=== PATIENT | female | born 1960 | race Caucasian/White ===

== ENCOUNTER → 2018-11-19 10:28 | Outpatient (CLI) | payer MEDICARE, MEDICAID | END | disposition home or self-care (01) | LOC: D.RT 10:28 | DX: D50.9 Iron deficiency anemia, unspecified (principal) ==

== ENCOUNTER 2018-12-01 08:00 | Outpatient (CLI) | payer MEDICARE, MEDICAID ==
[2018-12-01] MEDS ORDERED: VENTOLIN HFA18 GM INH (12:55)
[2018-12-01] MEDS ORDERED: FLOVENT HFA 11012 GM INH (12:56)
[2018-12-01] MEDS ORDERED: IPRAT-ALBUT 0.5-3 ML UPD (12:57)
[2018-12-01] MEDS ORDERED: CARAFATE1 G PO (12:57)
[2018-12-01] MEDS ORDERED: LINZESS145 MCG PO (12:57)
[2018-12-01] MEDS ORDERED: MACRODANTIN100 MG PO (12:58)
[2018-12-01] MEDS ORDERED: HYDROCHLOROTHIA25 MG PO (12:58)
[2018-12-01] MEDS ORDERED: TRAZODONE HCL150 MG PO (12:59)
[2018-12-01] MEDS ORDERED: NITROSTAT0.3 MG SL (12:59)
[2018-12-01] MEDS ORDERED: LYRICA150 MG PO (13:00)
[2018-12-01] MEDS ORDERED: CARDIZEM CD180 MG PO (13:00)
[2018-12-01] MEDS ORDERED: CYMBALTA60 MG PO (13:00)
[2018-12-01] MEDS ORDERED: ISOSORBIDE MONO30 M1 PO (13:01)
[2018-12-01] MEDS ORDERED: SYNTHROID125 MCG PO (13:01)
[2018-12-01] MEDS ORDERED: ABILIFY10 MG PO (13:02)
[2018-12-01] MEDS ORDERED: PROTONIX40 MG PO (13:02)
[2018-12-01] MEDS ORDERED: PEPCID AC20 MG PO (13:03)
[2018-12-01] MEDS ORDERED: VITAMIN B-12500 MCG PO (13:03)
[2018-12-01 14:28] LABS: APPEARANCE HAZY (CLEAR); COLOR YELLOW (YELLOW)
[2018-12-01 14:29] LABS: BILIRUBIN NEGATIVE (NEGATIVE); GLUCOSE NEGATIVE (NEGATIVE); KETONE NEGATIVE (NEGATIVE); NITRITE POSITIVE (NEGATIVE); PROTEIN NEGATIVE (NEGATIVE); SPECIFIC GRAVITY 1.015 (1.005-1.020); UROBILINOGEN NORMAL (NORMAL)
[2018-12-01 14:30] LABS: BACTERIA MANY /hpf (NONE SEEN); EPITHELIAL CELLS OCC /hpf (0-5); MUCUS <1+ /lpf (NONE SEEN); RED CELLS - URINE 0-5 /hpf (0-5); WHITE CELLS - URINE 0-5 /hpf (0-5)
[2018-12-01 15:40] LABS: HEMATOCRIT 38.9 % (36.0-48.0); HEMOGLOBIN 12.8 g/dL (12-16); MCH 27.8 pg (26.0-34.0); MCHC 32.9 g/dL (31.0-37.0); MCV 84.6 fL (80.0-100.0); RBC 4.6 10x6/uL (4.00-5.40); RDW 16.7 % (11.5-14.5); WBC 12.8 10x3/uL (4.8-10.8)
[2018-12-01 15:49] LABS: APTT 33.9 SECONDS (22.8-39.4); INR 1.07 (0.85-1.17); PROTIME 13.4 SECONDS (11.6-15.0)
[2018-12-01 15:52] LABS: ALBUMIN 2.9 g/dL (3.4-5.0); ALKALINE PHOSPHATASE 94 U/L (46-116); ALT (SGPT) 14 U/L (10-68); BILIRUBIN - TOTAL 0.16 mg/dL (0.2-1.3); CALC OSMOLALITY 272 mosm/kg (275-300); CALCIUM 8.8 mg/dL (8.5-10.1); CARBON DIOXIDE 23.8 mmol/L (21.0-32.0); CHLORIDE - SERUM 101 mmol/L (98-107); CREATININE - SERUM 0.7 mg/dL (0.6-1.3); GLUCOSE 93 mg/dL (74-106); SODIUM 137 mmol/L (136-145); UREA NITROGEN 11 mg/dL (7-18); eGFR NON AFRICAN AMERICAN > 90 mL/min (90-120)
[2018-12-20 14:09] VITALS: BMI 21.3
== END 2018-12-01 08:01 | disposition home or self-care (01) ==
LOC: D.OPS 08:00 → D.SDCHOLD 12-05 10:45 → EDSTATUS 12-05 13:30
PROVIDERS: Thoracic Surgery (Cardiothoracic Vascular Surgery)
DX: C34.12 Malignant neoplasm of upper lobe, left bronchus or lung (principal); Z53.9 Procedure and treatment not carried out, unspecified reason

== ENCOUNTER → 2018-12-09 13:32 | Outpatient (CLI) | payer MEDICARE, MEDICAID ==
[~2018-12-09 13:32] MED LIST: ABILIFY10 MG PO; ASPIRIN EC81 M1 PO; CARAFATE1 G PO; CARDIZEM CD180 MG PO; COLACE100 MG PO; CYMBALTA60 MG PO; FLOVENT HFA 11012 GM INH; HYDROCHLOROTHIA25 MG PO; IPRAT-ALBUT 0.5-3 ML UPD; ISOSORBIDE MONO30 M1 PO; K-DUR20 MEQ PO; LINZESS145 MCG PO; LYRICA150 MG PO; MACRODANTIN100 MG PO; MIRALAX17 GM PO; MUCINEX600 MG PO; NITROSTAT0.3 MG SL; PEPCID AC20 MG PO; PERCOCET 5-3251 TAB PO; PROTONIX40 MG PO; SYNTHROID125 MCG PO; TRAZODONE HCL150 MG PO; VENTOLIN HFA18 GM INH; VITAMIN B-12500 MCG PO
[2018-12-09 14:11] LABS: APPEARANCE CLEAR (CLEAR); BILIRUBIN NEGATIVE (NEGATIVE); COLOR YELLOW (YELLOW); GLUCOSE NEGATIVE (NEGATIVE); KETONE NEGATIVE (NEGATIVE); NITRITE NEGATIVE (NEGATIVE); PROTEIN NEGATIVE (NEGATIVE); SPECIFIC GRAVITY 1.015 (1.005-1.020)
== END | disposition home or self-care (01) ==
LOC: D.LAB 13:32
PROVIDERS: Orthopaedic Surgery
DX: N39.0 Urinary tract infection, site not specified (principal)

== ENCOUNTER 2018-12-15 07:30 | Inpatient (IN) | payer MEDICARE, MEDICAID ==
[2018-12-12 09:20] LABS: HEMATOCRIT 38.1 % (36.0-48.0); HEMOGLOBIN 12.5 g/dL (12-16); MCHC 32.8 g/dL (31.0-37.0); MCV 85.4 fL (80.0-100.0); MEAN PLATELET VOLUME 10.5 fL (7.4-10.4); RBC 4.46 10x6/uL (4.00-5.40); RDW 16.1 % (11.5-14.5); WBC 13.1 10x3/uL (4.8-10.8)
[2018-12-12 09:32] LABS: APTT 39.5 SECONDS (22.8-39.4); PROTIME 12.7 SECONDS (11.6-15.0)
[2018-12-12 09:33] LABS: ALBUMIN 2.7 g/dL (3.4-5.0); ALKALINE PHOSPHATASE 90 U/L (46-116); ALT (SGPT) 12 U/L (10-68); BILIRUBIN - TOTAL 0.21 mg/dL (0.2-1.3); CALC OSMOLALITY 266 mosm/kg (275-300); CALCIUM 8.8 mg/dL (8.5-10.1); CARBON DIOXIDE 24.7 mmol/L (21.0-32.0); CHLORIDE - SERUM 101 mmol/L (98-107); CREATININE - SERUM 0.7 mg/dL (0.6-1.3); GLUCOSE 107 mg/dL (74-106); PROTEIN - SERUM 8.3 g/dL (6.4-8.2); SODIUM 134 mmol/L (136-145); UREA NITROGEN 9 mg/dL (7-18); eGFR NON AFRICAN AMERICAN > 90 mL/min (90-120)
[2018-12-15] VITALS (14 sets, daily range): BP systolic 102–119; BP diastolic 55–72; BMI 27.3
[~2018-12-15] VITALS: Ht 165.1 cm; Wt 81.1 kg
--- NOTE | ~2018-12-15 | OP ---
PATIENT NAME: CHRISTEL BETANCOURT MEDICAL RECORD: [id number] :64 LOCATION:[facility].CV03 ADMISSION DATE:12/15/18 SURGEON: FRANCO DAWN MD DATE OF OPERATION: 12/19/2018 PROCEDURE: Fiberoptic bronchoscopy. INDICATION: Ms. Betancourt is a 58-year-old female, who underwent left upper lobe lobectomy. Post procedure, the patient has mucus plug of the left main bronchus and a total atelectasis of the left lower lobe. Bronchoscopy was carried out to remove the mucus plug. DESCRIPTION OF PROCEDURE: After obtaining conscious sedation, the bronchoscope was passed through the mouth. The vocal cords were normal, moving equally on phonation. The vallecula was normal. The epiglottis was normal. The trachea was normal. The tamiko was sharp. There was bloody mucus plug of the left main bronchus. Going back and forth 3-4 times to remove the mucous plugging. No endobronchial lesion was seen. There were severe bronchitic changes. Specimen washing was obtained and sent for routine culture and sensitivity, AFB, and fungus. MEDICATIONS: Versed 4 mg IV in divided doses, fentanyl 75 mcg IV in divided doses, atropine 0.6 mg IM. MONITORING: EKG, pulse, blood pressure were monitored throughout the procedure. TRANSINT:[id number] Voice Confirmation ID: [id number] DOCUMENT ID: [id number] FRANCO DAWN MD CC: [id number] DICTATION DATE: 12/19/18 1058 DRY GOODS CLERK: 12/19/18 1305 [place] [address]
--- NOTE | ~2018-12-15 | CN ---
PATIENT NAME:CHRISTEL AYON MEDICAL RECORD: [id number] : 64 LOCATION:[facility]CV03 ADMIT DATE: 12/15/18 ACCOUNT: [id number] CONSULTING PHYSICIAN: FRANCO DAWN MD REFERRING PHYSICIAN: ZAY VARELA MD DATE OF CONSULTATION: 12/18/2018 CONSULT REQUESTING PHYSICIAN: Zay Varela MD REASON FOR CONSULTATION: Atelectasis of the left lower lobe, for bronchoscopy. HISTORY OF PRESENT ILLNESS: Ms. Ayon is a 58-year-old female who was recently diagnosed with adenocarcinoma of the left upper lobe, that was a stage I. The patient underwent left upper lobe lobectomy and now she has atelectasis of the left lower lobe with mediastinal shift with elevated left hemidiaphragm. The patient has no shortness of breath. No fever or chill. Cough with very little sputum production. REVIEW OF THE SYSTEMS: As in history of present illness. PAST MEDICAL HISTORY: 1. COPD. 2. Anemia. 3. History of cancer. 4. Hypothyroidism. 5. Bipolar disorder. PAST SURGICAL HISTORY: 1. She is now status post left upper lobe lobectomy. 2. She had CT lung biopsy in October 2018. 3. Cholecystectomy. ALLERGIES: She has no known drug allergy. MEDICATIONS: PermissionTV was reviewed. PERSONAL AND SOCIAL HISTORY: The patient is still current everyday smoker. FAMILY HISTORY: Noncontributory. PHYSICAL EXAMINATION: GENERAL: The patient is lying comfortably in bed. She is not in acute distress. VITAL SIGNS: The blood pressure is 102/64, pulse is 100, respiration is 20, temperature is 99, and SpO2 is 98% on room air. HEENT: Conjunctivae are pink. Sclerae are not icteric. NECK: Neck is supple. No JVD. CHEST: The chest excursion is minimal on the left side. There are absent breath sounds. The right side of the chest is clear. HEART: Rhythm regular. Normal sound. No murmur. ABDOMEN: Abdomen is soft. Bowel sounds present. No hepatosplenomegaly. RECTAL: Deferred. EXTREMITIES: No cyanosis. No clubbing. No pedal edema. CENTRAL NERVOUS SYSTEM: The patient is awake and alert. There is no obvious cranial nerve abnormality. The gait was not tested. CONSULT REPORT [id number] CHRISTEL AYON DIAGNOSTIC DATA: Chest radiograph; There is almost total atelectasis of the left lower lobe with mediastinal shift. LABORATORY DATA: CBC; WBC is 14.4, hemoglobin 11.3, hematocrit 34.5, and platelet count 250. Chemistry; sodium 136, potassium 3.4, BUN is 8, and creatinine 0.5. IMPRESSION: 1. Adenocarcinoma of the left upper lobe, stage I, status post left upper lobe lobectomy. 2. COPD without exacerbation. 3. Atelectasis of the left lower lobe with mediastinal shift, possible pneumonia, possible mucus plugging. 4. Leukocytosis. RECOMMENDATION: 1. Start on cefepime and Levaquin to cover for pneumonia. 2. Albuterol/ipratropium nebulizer. 3. Brovana and budesonide nebulizer. 4. Mucinex. 5. Incentive spirometry and flutter q. 2 hourly when awake. 6. We wanted to proceed with bronchoscopy, but the patient had just eaten her lunch. We will do it tomorrow morning. The patient is on room air, saturating almost 98%. Dr. Varela, thank you for involving me in the care of Ms. Ayon. TRANSINT:[id number] Voice Confirmation ID: [id number] DOCUMENT ID: [id number] FRANCO DAWN MD CC: [id number] DICTATION DATE: 12/18/181431 BUSINESS CONSULTANT: 12/18/181909 ADM IN [facility] [address] [id number]
[~2018-12-15 07:30] MED LIST changes: -ASPIRIN EC81 M1 PO; -COLACE100 MG PO; -K-DUR20 MEQ PO; -MIRALAX17 GM PO; -MUCINEX600 MG PO; -PERCOCET 5-3251 TAB PO
--- NOTE | 2018-12-15 17:00 | NUR ---
PAGED DR LOPEZ TO ATTEMPT TO NOTIFY OF CONSULT. AWAITING RETURN CALL.
--- NOTE | 2018-12-15 18:37 | NUR ---
PATIENT TO ROOM FROM OR, ALERT AND ORIENTED, ATTEMPTING TO SIT UP AND MOVE ABOUT. VSS. BP 102/56 (71), HR 66, SR, SPO2 - 97%, RR - 22. CHEST TUBE X 2 TO LEFT LATERAL CHEST.
--- NOTE | 2018-12-15 18:38 | NUR ---
PT ARRIVED TO UNIT
--- NOTE | 2018-12-15 19:11 | NUR ---
REPORT RECEIVED, SHIFT ASSESSMENT COMPLETED PER FLOW SHEET. AROUSES TO VOICE. FOLLOWING COMMANDS. MOVES ALL EXTREMITIES. HOSE CEMENTER STRENGTH EQUAL BILATERALLY. PPP. RT ARTERIAL AND CVP LINE LEVELED AND ZEROED WITH GOOD WAVEFORM. CONFUSED, REORIENTATION PROVIDED. LT SUBCLAVIAN CVL PATENT, DRESSING C/D/I. WILDER CATHETER TO GRAVITY SECURED. X2 LEFT LATERAL CHEST TUBES TO 20 CM SUCTION, BLOODY OUTPUT NOTED, NO AIR LEAK. LEFT LATERAL INCISION SITE NOTED, DRESSING C/D/I. MID BACK EPIDURAL INFUSING FENTANYL AT 8 MLSH/RH, DRESSING C/D/I. SEE FLOW SHEET FOR COMPLETE ASSESSMENT. WILL CONTINUE TO KEEP CLOSE MONITORING. CALL LIGHT WITHIN REACH.
--- NOTE | 2018-12-15 20:10 | NUR ---
AND BROTHER AT BEDSIDE, UPDATE GIVEN, QUESTIONS ANSWERED. NO NEEDS AT THIS TIME. WILL CONTINUE TO MONITOR. VSS.
--- NOTE | 2018-12-15 20:18 | NUR ---
SECURITY CALL CODE SET UP BY PATIENT.
--- NOTE | 2018-12-15 20:24 | NUR ---
SISTER AT BEDSIDE, UPDATE GIVEN, QUESTIONS ANSWERED.
--- NOTE | 2018-12-15 21:00 | NUR ---
PATIENT MORE AWAKE AND ALERT, CALM AND COOPERATIVE. DENIES NEEDS. VSS. WILL CONTINUE TO MONITOR.
--- NOTE | 2018-12-15 22:40 | NUR ---
PATIENT MORE AWAKE AND ALERT. DENIES NEEDS. WILL CONTINUE TO MONITOR.
--- NOTE | 2018-12-15 23:01 | NUR ---
REASSESSMENT COMPLETED PER FLOW SHEET, SEE FOR DETAILS. ASSISTED WITH REPOSITIONING. PPP. COUGH WEAK AND NON-PRODUCTIVE. DENIES NEEDS. CALL LIGHT WITHIN REACH. WILL CONTINUE TO MONITOR.
[2018-12-16] VITALS (25 sets, daily range): BP systolic 99–131; BP diastolic 57–75; BMI 21.3
--- NOTE | 2018-12-16 01:00 | NUR ---
ORAL CARE PROVIDED. LIP MOISTURIZER PROVIDED. ENCOURAGED COUGH/DEEP BREATHING AND USE OF IS. COUGH WEAK AND NON-PRODUCTIVE. PULLING 500-750 ON IS. DENIES NEEDS. VSS. WILL CONTINUE TO MONITOR.
--- NOTE | 2018-12-16 03:18 | NUR ---
REASSESSMENT COMPLETED PER FLOW SHEET, SEE FOR DETAILS. NO ACUTE DISTRESS NOTED. VSS. DENIES NEEDS. WILL CONTINUE TO MONITOR.
--- NOTE | 2018-12-16 05:00 | NUR ---
RESTING, NO ACUTE DISTRESS NOTED. WILL CONTINUE TO MONITOR.
[2018-12-16 07:02] LABS: ALBUMIN 2.3 g/dL (3.4-5.0); ALKALINE PHOSPHATASE 98 U/L (46-116); ALT (SGPT) 43 U/L (10-68); BILIRUBIN - TOTAL 0.25 mg/dL (0.2-1.3); CALC OSMOLALITY 279 mosm/kg (275-300); CALCIUM 8.6 mg/dL (8.5-10.1); CARBON DIOXIDE 22.9 mmol/L (21.0-32.0); CHLORIDE - SERUM 105 mmol/L (98-107); CREATININE - SERUM 0.5 mg/dL (0.6-1.3); GLUCOSE 113 mg/dL (74-106); POTASSIUM - SERUM 3.9 mmol/L (3.5-5.1); PROTEIN - SERUM 7.2 g/dL (6.4-8.2); SODIUM 139 mmol/L (136-145); UREA NITROGEN 14 mg/dL (7-18); eGFR NON AFRICAN AMERICAN > 90 mL/min (90-120)
--- NOTE | 2018-12-16 07:23 | NUR ---
UP IN BED AWAKE AT THIS TIME. NO ACUTE DISTRESS NOTED. ALL TUBES AND LINES ARE IN PLACE. WILL CONTINUE PLAN OF CARE.
[2018-12-16 07:25] LABS: HEMATOCRIT 35.9 % (36.0-48.0); HEMOGLOBIN 11.6 g/dL (12-16); MCH 27.8 pg (26.0-34.0); MCHC 32.3 g/dL (31.0-37.0); MCV 86.1 fL (80.0-100.0); MEAN PLATELET VOLUME 11.4 fL (7.4-10.4); RBC 4.17 10x6/uL (4.00-5.40); RDW 16.2 % (11.5-14.5); WBC 16.7 10x3/uL (4.8-10.8)
--- NOTE | 2018-12-16 09:52 | NUR ---
PER DR VARELA NURSE, START PT ON FULL LIQUID DIET NOW AND IF PT TOLERATES THEN ADVANCE TO REGULAR DIET AT LUNCH TIME.
--- NOTE | 2018-12-16 11:21 | NUR ---
ART LINE DC AT THIS TIME PER PHYSICIAN ORDERS. CATHETER TIP INTACT, PRESSURE APPLIED FOR 5 MIN, NO S/S BLEEDING NOTED TO SITE. ALSO PERIPHERAL IV TO RT WRIST DC AT THIS TIME, CATHETER TIP INTACT. NO ACUTE DISTRESS NOTED. WILL CONTINUE PLAN OF CARE.
--- NOTE | 2018-12-16 13:21 | OP ---
PATIENT NAME: CHRISTEL AYON MEDICAL RECORD: [id number] :64 LOCATION:[facility] D.CV03 ADMISSION DATE:12/15/18 SURGEON: DENNIS VARELA MD DATE OF OPERATION: 12/15/2018 SURGEON: Dennis Varela MD ANALYTICAL DATA MINER: Justin Greenberg MD and Gilberto Lux OPERATION PERFORMED: 1. Left upper lobe lobectomy. 2. Mediastinal lymph node dissection. 3. Bronchoscopy. PREOPERATIVE DIAGNOSIS: Left upper lobe lung cancer. POSTOPERATIVE DIAGNOSIS: Stage I lung cancer. ANESTHESIA: Double lumen, general endotracheal anesthesia. ESTIMATED BLOOD LOSS: 100 cc. COMPLICATIONS: None. SPECIMENS: 1. Left upper lobe. 2. Mediastinal lymph nodes from the superior hilar and inferior pulmonary ligament regions, all appeared to be anthracotic. COMPLICATIONS: None. CONDITION: Stable. DISPOSITION: ICU. OPERATIVE FINDINGS: 1. Bronchoscopy with no endobronchial lesions. 2. Large left upper lobe with no fissure. 3. Multiple large anthracotic lymph nodes. 4. Bronchus airtight under 15 cm positive pressure, small amount of leak at the stapled fissure line and the lower lobe appeared to fill the space of the left chest. INDICATION: Biopsy-proven lung cancer and an enlarging left upper lobe lung mass. DESCRIPTION OF PROCEDURE: The patient was brought to the operating suite. Double lumen general endotracheal anesthesia was placed. Bronchoscopy was performed. The patient was turned to the right lateral decubitus position with appropriate padding including an axillary roll. The patient was prepped and draped. A posterolateral thoracotomy incision was made, subcutaneous tissue divided with electrocautery. The latissimus muscle was divided. Posterior muscles were spared and retracted posteriorly. The fifth rib was incised posteriorly to create a trapdoor type thoracotomy. There OPERATIVE REPORT [id number] CHRISTEL AYON were no intrapleural adhesions and no significant pleural effusion. The hilum was freed. Large superior hilar and posterior hilar lymph nodes were removed to expose the artery. Arterial branches were divided between ligatures and suture ligatures. Insole Tape Stitcher Uco for the case was Dr. Greenberg who performed ligation and was present for the majority of the case. Stapled vascular lines on the large arterial and venous branches. Then, the fissure was stapled to complete the fissure and the bronchus after clamping to ensure the lower lobe inflation was divided. Thorough irrigation was undertaken. Hemostasis was ensured. A separate pledget suture was used along the staple line, creating the fissure Tisseel was placed along the edges of the stapled line. Lymph nodes were dissected and removed. Clips were placed at their location. Chest tubes were placed anteriorly and inferiorly. Lung was reinflated. Chest was closed with pericostal sutures, 2 layers of Vicryl in the muscle, subcutaneous, and subcuticular. Dermabond was placed. The needle and sponge counts reported correct. The patient returned to supine position in good condition to the CV ICU. TRANSINT:[id number] Voice Confirmation ID: [id number] DOCUMENT ID: [id number] DENNIS VARELA MD at 1321 CC: RAMSES LOPEZ MD [id number] DICTATION DATE: 12/15/181826 FORMULA MIXER: 12/15/182022 ADM IN [facility] [address] [place] [address]
--- NOTE | 2018-12-16 13:22 | NUR ---
RESTING IN BED AT THIS TIME. RESPIRATIONS STEADY AND UNLABORED. AWAKENS EASILY WHEN SPOKEN TO. COUGH AND DEEP BREATING, PERFORMED QH, HAS BEEN VERY WEAK, HOWEVER STARTING TO BECOME A LITTLE STRONGER. ALSO PT EFFORT AT INCENTIVE SPIROMETER HAS BEEN 500, THIS TIME PT EFFORT WAS 750. CALL LIGHT IN REACH. EPIDURAL SITE CDI, TAPE INTACT. DRESSINGS CDI. WOUND VAC IN PLACE. NO ACUTE DISTRESS NOTED. WILL CONTINUE PLAN OF CARE.
--- NOTE | 2018-12-16 15:05 | NUR ---
NOTED 1000 TO INCENTIVE SPIROMETER.
--- NOTE | 2018-12-16 16:03 | NUR ---
FAMILY AT BEDSIDE AT THIS TIME. NO ACUTE DISTRESS NOTED. CALL LIGHT IN REACH. WILL CONTINUE PLAN OF CARE.
--- NOTE | 2018-12-16 17:41 | NUR ---
UP IN BED AWAKE AT THIS TIME VISITING WITH VISITORS. NO ACUTE DISTRESS NOTED. WILL CONTINUE PLAN OF CARE.
--- NOTE | 2018-12-16 17:55 | MORECARE ---
CASE MANAGEMENT DISCHARGE SUMMARY PATIENT: CHRISTEL AYON UNIT: [id number] ADM DATE: 12/15/18 AGE: 58 : 64 SEX: F ROOM/BED: [facility] AUTHOR: LUKE GREGORIO PHYSICIAN: REFERRING PHYSICIAN: DENNIS VARELA MD DATE OF SERVICE: 12/16/18 Discharge Plan Patient Name: CHRISTEL AYON Facility: [facility]:[place] : 1960 Planned Disposition: Home Anticipated Discharge Date: Discharge Date: Expected LOS: Initial Reviewer: [email or web address] Initial Review Date: 12/15/2018 Generated: 12/16/18 6:55 pm DCPIA - Discharge Planning Initial Assessment Updated by [email or web address]: Guerline Nicole on 12/16/18 5:52 pm * Is the patient Alert and Oriented? Yes * How many steps to enter\exit or inside your home? * PCP JUANITA - AMAIRANI SWANN IN [facility] * Pharmacy [facility] * Preadmission Environment Home with Family * ADLs Independent * Other Equipment WALKER, CANE, WHEELCHAIR, HOSPITAL BED, NEBULIZER ALL AVAILABLE IF NEEDED * List name and contact numbers for known caregivers / representatives who currently or will assist patient after discharge: RUTH ANN AYON - [facility]- [phone] * Verbal permission to speak to the caregivers and representatives has been obtained from the patient. Yes * Community resources currently utilized None * Additional services required to return to the preadmission environment? No * Can the patient safely return to the preadmission environment? Yes * Has this patient been hospitalized within the prior 30 days at any hospital? No Patient Name: CHRISTEL AYON Page [id number] at 1755 All edits/amendments must be made on the electronic document DICTATION DATE: 12/16/181754 DYE LAB TECHNICIAN: DAVID 12/16/181754 RPT#: [id number] DC DATE: STATUS: ADM IN [facility] [address] [place] [address] END OF REPORT
--- NOTE | 2018-12-16 18:04 | MORECARE ---
CASE MANAGEMENT DISCHARGE SUMMARY PATIENT: CHRISTEL AYON UNIT: [id number] ADM DATE: 12/15/18 AGE: 58 : 64 SEX: F ROOM/BED: D.03 AUTHOR: DARLINE,DOC PHYSICIAN: REFERRING PHYSICIAN: DENNIS VARELA MD DATE OF SERVICE: 12/16/18 Discharge Plan Patient Name: CHRISTEL AYON Facility: [facility]:[place] : 1960 Planned Disposition: Home Anticipated Discharge Date: Discharge Date: Expected LOS: Initial Reviewer: [email or web address] Initial Review Date: 12/15/2018 Generated: 12/16/18 7:04 pm Comments DCP- Discharge Planning Updated by [email or web address]: Guerline Nicole on 12/16/18 4:[address] Patient Name: CHRISTEL AYON Admission Status: Elective Accout number: [id number] Admission Date: 12-15-2018 : 1960 Admission Diagnosis: Attending: DENNIS VARELA Current LOS: 1 Anticipated DC Date: Planned Disposition: Home Primary Insurance: [employer] Discharge Planning Comments: CM met with patient at bedside after obtaining verbal consent. Patient states she plans on returning home after discharge with her . Patient states she will have family transport her home via private vehicle. Patient states she may need home health upon discharge. Patient my require walk test if 02 still needed upon discharge. CM will continue to follow and assist as needed for discharge planning / needs. Customer Experience Specialist: Guerline Nicole DCPIA - Discharge Planning Initial Assessment Updated by [email or web address]: Guerline Nicole on 12/16/18 5:52 pm * Is the patient Alert and Oriented? Yes * How many steps to enter\exit or inside your home? * PCP JUANITA - AMAIRANI [facility] IN [facility] * Pharmacy [facility] * Preadmission Environment Home with Family * ADLs Independent * Other Equipment WALKER, CANE, WHEELCHAIR, HOSPITAL BED, NEBULIZER ALL AVAILABLE IF NEEDED * List name and contact numbers for known caregivers / representatives who currently or will assist patient after discharge: RUTH ANN AYON - [facility]- [phone] * Verbal permission to speak to the caregivers and representatives has been obtained from the patient. Yes * Community resources currently utilized None * Additional services required to return to the preadmission environment? No * Can the patient safely return to the preadmission environment? Yes * Has this patient been hospitalized within the prior 30 days at any hospital? No Last DP export: 12/16/18 4:55 p Patient Name: CHRISTEL AYON Page [phone] at 1804 All edits/amendments must be made on the electronic document DICTATION DATE: 12/16/181803 INFORMATICA ARCHITECT: DAVID 12/16/181803 RPT#: [id number] DC DATE: STATUS: ADM IN [facility] [address] [place] [address] END OF REPORT
--- NOTE | 2018-12-16 18:41 | NUR ---
SAT UP ON SIDE OF BED WITH FEET DANGLING FOR 9 MIN. TOLERATED WELL.
--- NOTE | 2018-12-16 18:57 | NUR ---
CHEST TUBE DRESSING CHANGED AT THIS TIME.
--- NOTE | 2018-12-16 19:15 | NUR ---
REC'D TO CARE, PROPELLER DRIVEN AIRPLANE MECHANIC PER FLOWSHEET. PT AWAKE AND ORIENTED, VSS. L CT X 2 TO 20CM SXN, NO AIR LEAK NOTED. EPIDURAL LINE INTACT - SEE FLOWSHEET. PT REPORTS ADEQUATE PAIN RELIEF. CRITICORE WILDER PATENT AND DRAINING CLEAR, YELLOW URINE. AIR OVERLAY IN USE. CONT Q1H C&DB - SEE FLOWSHEET. ALARMS ON AND C/L IN REACH.
--- NOTE | 2018-12-16 20:05 | NUR ---
DR. LOPEZ IN TO SEE PT, NO NEW ORDERS.
--- NOTE | 2018-12-16 21:00 | NUR ---
BATH AND LINEN CHANGE COMPLETE. WILDER-CARE DONE. PT REPOSITIONED UP IN BED. FRESH WATER AT BS. ALARMS ON AND C/L IN REACH.
--- NOTE | 2018-12-16 23:01 | NUR ---
REASSESSMENT PER FLOWSHEET, NO ACUTE CHANGES. PT REPORTS "WOKE UP TO MY SHOULDER REALLY HURTING " PRN ULTRAM GIVEN AND PT REPOSITIONED UP IN BED FOR COMFORT.
--- NOTE | 2018-12-16 23:09 | NUR ---
REASSESSMENT PER FLOWSHEET, NO ACUTE CHANGES. RESTING QUIETLY, DENIES CP OR SOB. GROIN SITES C/D/I. VSS. C/L IN REACH.
[2018-12-17] VITALS (23 sets, daily range): BP systolic 101–116; BP diastolic 52–75
--- NOTE | 2018-12-17 01:00 | NUR ---
PT TO L SIDE, FAIR COUGH NOTED. VSS. C/L IN REACH.
--- NOTE | 2018-12-17 03:08 | NUR ---
REASSESSMENT PER FLOWSHEET, NO ACUTE CHANGES. PT RESTING FOR SHORT PERIODS AT A TIME. VSS. STERILE DSG CHANGE TO CVL PER PROTOCOL, NO REDNESS OR SWELLING AT SITE. PT REPOSITIONED UP IN BED. ENCOURAGED TO IMPROVE COUGH. I.S. 750-1000. PT VERBALIZES IMPORTANCE OF DB&C. ALARMS ON AND C/L IN REACH.
--- NOTE | 2018-12-17 04:10 | NUR ---
PCXR DONE. PT SITTING UP IN BED, PLAYING GAME ON PHONE.
[2018-12-17 06:19] LABS: HEMATOCRIT 35.4 % (36.0-48.0); HEMOGLOBIN 11.8 g/dL (12-16); MCH 28.6 pg (26.0-34.0); MCHC 33.3 g/dL (31.0-37.0); MCV 85.9 fL (80.0-100.0); RBC 4.12 10x6/uL (4.00-5.40); RDW 16.2 % (11.5-14.5); WBC 15.9 10x3/uL (4.8-10.8)
[2018-12-17 06:56] LABS: ALBUMIN 2.1 g/dL (3.4-5.0); ALKALINE PHOSPHATASE 85 U/L (46-116); BILIRUBIN - TOTAL 0.35 mg/dL (0.2-1.3); CALCIUM 8.6 mg/dL (8.5-10.1); CARBON DIOXIDE 25.6 mmol/L (21.0-32.0); CHLORIDE - SERUM 102 mmol/L (98-107); CREATININE - SERUM 0.5 mg/dL (0.6-1.3); GLUCOSE 117 mg/dL (74-106); POTASSIUM - SERUM 3.7 mmol/L (3.5-5.1); PROTEIN - SERUM 7.1 g/dL (6.4-8.2); SODIUM 138 mmol/L (136-145); eGFR NON AFRICAN AMERICAN > 90 mL/min (90-120)
[2018-12-17 06:58] LABS: ALT (SGPT) 26 U/L (10-68); CALC OSMOLALITY 274 mosm/kg (275-300); UREA NITROGEN 7 mg/dL (7-18)
--- NOTE | 2018-12-17 07:00 | NUR ---
REPORT RECEVIED FROM THE OFF GOING RN. SEE ASSESSMENT IN THE PTS FLOW SHEET. PT SITTING IN BED. VSS AT THIS TIME. EPIDURAL NOTED C/D/I DRESSING. SEE EPIDURAL FLOW SHEET. O2 AT 1L. O2 REMOVED AND NOW ON RA. O2 SAT STABLE. VSS. LEFT SUBCLAVIAN DRESSING C/D/I. PATENT AND SL. LEFT CT'S NOTED WITH SEROUS DRAINAGE. CONNECTED TO SUCTION WITH NO AIR LEAK NOTED. FC NOTED WITH CLEAR, YELLOW URINE. BREAFKAST TRAY PROVIDED AND AM MEDS GIVEN WITHOUT DIFFICULTY. CALL LIGHT IN REACH. WILL CONT POC.
--- NOTE | 2018-12-17 07:30 | NUR ---
PT INSTRUCTED TO USE HER IS 10X'S/H AND TO TCDB Q1H. PT ABLE TO PULL 500 ON HER IS AND HAS AND EXTREAMLY WEAK COUGH. WILL CONT TO WORK WITH AND POC.
--- NOTE | 2018-12-17 09:25 | NUR ---
DR VARELA AT THE PTS BEDSIDE. ENCOURAGED COUGHING AND DEEP BREATHING.
--- NOTE | 2018-12-17 23:32 | NUR ---
190 REPORT RECEIVED CARE ASSUMED. PT LAYING IN BED RESTING. ASSESSMENT DONE SEE FLOW SHEET. VSS. IS 500. COUGH AND DEEP BREATH GOOD EFFORT. CT SUCTION 20CM NO AIR LEAK. 2099 MEDS GIVEN PER JAN. NO DIFFICULTY SWALLOWING NOTED. WATER PROVIDED. VSS. WILL CONTINUE MONITORING. 2299 REASSESSMENT DONE SEE FLOW SHEET. SEE FLOW SHEET. VSS. IS 500.
[2018-12-18] VITALS (22 sets, daily range): BP systolic 93–117; BP diastolic 57–74
[2018-12-18 06:12] LABS: HEMATOCRIT 34.5 % (36.0-48.0); HEMOGLOBIN 11.3 g/dL (12-16); MCH 27.8 pg (26.0-34.0); MCHC 32.8 g/dL (31.0-37.0); MEAN PLATELET VOLUME 11.1 fL (7.4-10.4); RBC 4.06 10x6/uL (4.00-5.40); RDW 15.9 % (11.5-14.5); WBC 14.4 10x3/uL (4.8-10.8)
[2018-12-18 06:34] LABS: ALKALINE PHOSPHATASE 80 U/L (46-116); BILIRUBIN - TOTAL 0.32 mg/dL (0.2-1.3); CALC OSMOLALITY 270 mosm/kg (275-300); CALCIUM 8.4 mg/dL (8.5-10.1); CARBON DIOXIDE 26.4 mmol/L (21.0-32.0); CHLORIDE - SERUM 101 mmol/L (98-107); CREATININE - SERUM 0.5 mg/dL (0.6-1.3); GLUCOSE 116 mg/dL (74-106); POTASSIUM - SERUM 3.4 mmol/L (3.5-5.1); PROTEIN - SERUM 6.7 g/dL (6.4-8.2); SODIUM 136 mmol/L (136-145); UREA NITROGEN 8 mg/dL (7-18); eGFR NON AFRICAN AMERICAN > 90 mL/min (90-120)
[2018-12-18 06:35] LABS: ALT (SGPT) 18 U/L (10-68)
--- NOTE | 2018-12-18 07:00 | NUR ---
0000 - PT RESTING IN BED, DENIES NEEDS, REPOSITIONED FOR COMFORT, VSS, EPIDURAL INTACT, VSS 0300- REASESSMENT COMPLETED PER FLOW SHEET, NO ACUTE CHANGES AT THIS TIME, SEE FLOW SHEET FOR FURTHER, VSS, WILL CONTINUE TO MONITOR 0500- PT SLEEPING, WAKES EASY, REPOSITIONED FOR COMFORT IN BED, VSS, ALL LINES PATENT
--- NOTE | 2018-12-18 07:58 | NUR ---
DR. WADE SPOKE WITH PHARMACY R/T LOVENOX INJECTIONS WITH EPIDURAL IN PLACE TO BE SWITCHED TO ONE TIME DOSING AT 1200PM q24HR.
--- NOTE | 2018-12-18 08:32 | NUR ---
SHIFT ASSESSMENT COMPLETE. PT AWAKE, CONVERSANT. REPOSITIONED IN BED AND BREAKFAST TRAY PROVIDED. DENIES ANY ADDITIONAL NEEDS AT THIS TIME.
--- NOTE | 2018-12-18 12:06 | NUR ---
PT ASSISTED UP IN BED AND LUNCH TRAY PROVIDED. DENIES ANY ADDITIONAL NEEDS. CALL LIGHT IN REACH.
--- NOTE | 2018-12-18 12:58 | NUR ---
Nutrition Follow Up: Pt was asleep and no family present at the time of RD visit. Interview deferred at this time. Diet: Regular PO Intake: 83% meal avg I<O Wt stable BM: 12/15/18 Labs and meds reviewed Rec continue current diet. Will continue to honor food preferences. RD following.
--- NOTE | 2018-12-18 13:47 | NUR ---
PT HAS LOVENOX DUE AT 12:00. PREVIOUS ORDER WAS BID ADMINISTRATION AND PLACED ON HOLD. THEN A NEW ORDER WAS RECIEVED THAT WAS TO GIVE AT 12:00. CONTACTED CV SURGEON NURSE AND WAS ASKED TO HOLD DOSE UNTIL COULD CLARIFY IF SHOULD GET OR REMAIN ON HOLD.
--- NOTE | 2018-12-18 14:24 | NUR ---
DR DAWN BY TO SEE PATIENT. SPOKE WO HER ABOUT PROCEDURE. IS ON ROOM AIR AT THIS TIME. GIVEN FLUTTER DEVICE AND INSTRUCTED ON USE. PULLING 750 ON I.S. WILL MAKE NPO AT MIDNIGHT AND BRONCH TOMORROW.
--- NOTE | 2018-12-18 15:17 | NUR ---
PLAN FOR BRONCHOSCOPY 9-10AM 12/[address] DAWN
--- NOTE | 2018-12-18 19:30 | NUR ---
REPORT REC'D AND CARE ASSUMED, REC'D PT ON 02 @ 3LITERS VIA NC, AWAKE, ALERT, AND ORIENTED X 4, LDLSCL DRSG CDI WITH NS @ 10CC/HR, LEFT LATERAL INCISION WITH DRSG CDI, LEFT LATERAL CT'S TO 20 CM H2O SUCTION WITH NO AIR LEAK, DRSG CDI, CT WITH SEROUS DRAINAGE PRESENT, CRITICORE WILDER PATENT DRAINING CLEAR YELLOW URINE, BILAT TEDS/SCDS, PPP, EPIDURAL INFUSING @ 9CC/HR WITH 3CC Q15MIN BOLUS, EPIDURAL TAPED SECURELY TO BACK, AIR OVERLAY MATTRESS IN USE, BILAT TEDS/SCDS INTACT, PPP, SR UP X 2, CALL LIGHT IN REACH, VISIBLE TO NURSES STATION.
--- NOTE | 2018-12-18 20:00 | NUR ---
VSS NO S/S OF DISTRESS, PT DENIES ANY NEEDS AT THIS TIME, ALL SAFETY MEASURES IN PLACE, CALL LIGHT IS IN REACH. WILL NOTE AND CHART ANY CHANGES, NPO SIGN AT MIDNIGHT SIGN UP, AND CONSENTS ARE SIGNED AND ON CHART.
[2018-12-19] VITALS (19 sets, daily range): BP systolic 89–108; BP diastolic 50–64
[2018-12-19 07:51] LABS: ALBUMIN 1.8 g/dL (3.4-5.0); ALKALINE PHOSPHATASE 78 U/L (46-116); BILIRUBIN - TOTAL 0.28 mg/dL (0.2-1.3); CALCIUM 8.2 mg/dL (8.5-10.1); CARBON DIOXIDE 27.1 mmol/L (21.0-32.0); CHLORIDE - SERUM 101 mmol/L (98-107); CREATININE - SERUM 0.5 mg/dL (0.6-1.3); GLUCOSE 101 mg/dL (74-106); PROTEIN - SERUM 6.6 g/dL (6.4-8.2); SODIUM 136 mmol/L (136-145); eGFR NON AFRICAN AMERICAN > 90 mL/min (90-120)
[2018-12-19 07:52] LABS: BASOPHILS 0.3 % (0-2); HEMATOCRIT 34.7 % (36.0-48.0); HEMOGLOBIN 11.1 g/dL (12-16); IMMATURE GRANULOCYTES 0.3 % (0-5); LYMPHOCYTES 10.8 % (15-50); MCH 27.5 pg (26.0-34.0); MCV 86.1 fL (80.0-100.0); MEAN PLATELET VOLUME 11.2 fL (7.4-10.4); NEUTROPHILS 71.6 % (40-80); PLATELET COUNT 246 10x3/uL (130-400); RBC 4.03 10x6/uL (4.00-5.40); WBC 15.8 10x3/uL (4.8-10.8)
[2018-12-19 08:04] LABS: ALT (SGPT) 24 U/L (10-68); CALC OSMOLALITY 271 mosm/kg (275-300); POTASSIUM - SERUM 4.1 mmol/L (3.5-5.1); UREA NITROGEN 12 mg/dL (7-18)
--- NOTE | 2018-12-19 08:37 | NUR ---
DR VARELA CALLED AND VERIFIED TO HOLD THE LOVENOX AND TO KEEP THE EPIDURAL UNTIL AFTER THE BRONCH.
--- NOTE | 2018-12-19 10:22 | NUR ---
4 OF VERSED AND [address] BEARDEN ABOUT TO DO THE BRONCH
--- NOTE | 2018-12-19 10:53 | NUR ---
DR DAWN COMPLETED WITH THE BRONCH. A TOTAL OF 4 OF VERSED AND 75 MCG OF FENTANYL GIVEN PER DR DAWN. PT TOLERATED WELL. VSS WILL MONITOR.
--- NOTE | 2018-12-19 12:25 | NUR ---
PT VSS. PT RESTING WITH HER EYES CLOSED WITH NO S/SX OF DISTRESS/DISCOMFORT NOTED. AROUSES TO VOICE AND ABLE TO FOLLOW COMMANDS.
--- NOTE | 2018-12-19 13:00 | NUR ---
PT AWAKE AND ENCOURAGED TO TCDB. PULLING 500 ON HER IS. ICE CHIPS PROVIDED. TOLERATING WELL. VERY WEAK COUGH NOTED.
--- NOTE | 2018-12-19 14:00 | NUR ---
DR SHAW AT THE PTS BEDSIDE CHANGING OUT EPIDURAL BAG. HE IS MADE AWARE OF ORDER STATUS. CONT CURRENT RATE PER DR SHAW.
--- NOTE | 2018-12-19 16:45 | NUR ---
DR VARELA IN THE UNIT. HE STATED THAT DR ONEILL WILL MOST LIKLEY PULL CT TOMORROW AND TO KEEP THE EPIDURAL UNTIL THN.
--- NOTE | 2018-12-19 18:12 | NUR ---
LEFT LATERAL CHEST TUBE DRESSIN CHANGED. SEROUS DRAIANGE NOTED. LINENS CHANGED AND GOWN CHANGED. PT TOLERATED WELL.
--- NOTE | 2018-12-19 21:15 | NUR ---
EVENING MEDS GIVEN, NO VISITORS IN AT THIS TIME, VSS, WILL MONITOR FOR CHANGES.
[2018-12-20] VITALS (48 sets, daily range): BP systolic 82–106; BP diastolic 47–64; Ht 165.1 cm; Wt 81.1 kg
--- NOTE | 2018-12-20 00:04 | NUR ---
ASSUMED PT CARE 12/19/18 AT 2345. PT RESTING WELL NO CHANGES FROM PREVIOUS ASSESSMENT, WILL CONTINUE TO MONITOR. NO NEEDS AT THIS TIME ALL SAFETY MEASURES IN PLACE.
--- NOTE | 2018-12-20 04:50 | NUR ---
pt converted to AFIB RVR PT STATES SHE HAS HISTORY OF AFIB. PROVIDER TO BE NOTIFIED.
[2018-12-20 05:06] LABS: HEMATOCRIT 33.8 % (36.0-48.0); MCH 28.1 pg (26.0-34.0); MCHC 32.5 g/dL (31.0-37.0); MCV 86.4 fL (80.0-100.0); MEAN PLATELET VOLUME 11.3 fL (7.4-10.4); RBC 3.91 10x6/uL (4.00-5.40); WBC 15.5 10x3/uL (4.8-10.8)
[2018-12-20 05:20] LABS: ALBUMIN 1.8 g/dL (3.4-5.0); ALKALINE PHOSPHATASE 95 U/L (46-116); ALT (SGPT) 27 U/L (10-68); BILIRUBIN - TOTAL 0.35 mg/dL (0.2-1.3); CALC OSMOLALITY 268 mosm/kg (275-300); CALCIUM 8.4 mg/dL (8.5-10.1); CARBON DIOXIDE 27.1 mmol/L (21.0-32.0); CHLORIDE - SERUM 101 mmol/L (98-107); CREATININE - SERUM 0.5 mg/dL (0.6-1.3); GLUCOSE 99 mg/dL (74-106); POTASSIUM - SERUM 4.2 mmol/L (3.5-5.1); PROTEIN - SERUM 6.5 g/dL (6.4-8.2); SODIUM 135 mmol/L (136-145); UREA NITROGEN 10 mg/dL (7-18); eGFR NON AFRICAN AMERICAN > 90 mL/min (90-120)
--- NOTE | 2018-12-20 05:24 | NUR ---
DR ONEILL INFORMED OF PT STATUS. ORDER FOR CARDIZEM DRIP PRESCRIBED. INTIAL RATE OF 5ML/HR. WILL INCREASE TO 10ML/HR WITH NO CONVERSION. WILL CONITNUE TO MONITOR.
--- NOTE | 2018-12-20 06:33 | NUR ---
pt cardizem gtt up to 10ml/hr, she remains non-symptomatic, will continue to monitor.
--- NOTE | 2018-12-20 07:00 | NUR ---
AWAKES EASILY TO VERBAL STIMULI SKIN WARM AND DRY. LEFT CHEST CHEST TUBES X 2 TO 20 CM SUCTION SEROUS DRAINAGE FROM BOTH. DRESSING SATURATED IN SEROUS FLUID. WILDER CATH PATENT DRAINING CLEAR YELLOW URINE. ABD SOFT. EPIDURAL FOR PAIN, DRESSING DRY AND INTACT. STATES SHE IS STILL HURTING. TRAIN SYSTEM OPERATOR BUTTON IN HAND. STATES HER FEET FEEL NUMB. IV RIGHT SUBCLAVIAN DRESSING INTACT. MONITOR SR RIGHT NOW.
--- NOTE | 2018-12-20 08:03 | NUR ---
DR. ONEILL NOTIFIED OF PATIENT RHYTHM BACK IN RVR ATRIAL FIB. CARDIOLOGY CONSULT ORDERED. CARDIZEM GTT AT 10 MG HOUR.
--- NOTE | 2018-12-20 08:17 | NUR ---
DR. ALEJO NOTIFIED OF CONSULT
--- NOTE | 2018-12-20 08:21 | NUR ---
RETURNED INTO SR. BREAKFAST SERVED
--- NOTE | 2018-12-20 09:00 | NUR ---
DRESSING LEFT CHEST CHANGED. CLEAN WITH BETADINE. STERILE 4X4 APPLIED SECURE WITH TEGRADERM. PATIENT TOLERATED POORLY, DOES GET SHORT OF BREATH EASILY. OXYGEN INCREASED TO 5 LITERS TO KEEP PULSE OX ABOVE 90%
--- NOTE | 2018-12-20 10:00 | NUR ---
DR. ONEILL HERE POSTERIOR CHEST TUBE REMOVED. PATIENT TOLERATED WELL. ANTERIOR CHEST TUBE PLACE SINGLE PLEURVAC AT 20 CM SUCTION. DRESSING REMOVED OFF INCISION LEFT POSTERIOR BACK. INCISION WITHOUT REDNESS OR DRAINAGE. PATIENT TOELRATED WELL.
--- NOTE | 2018-12-20 11:45 | NUR ---
LUNCH SERVED. ATE WELL. BECAME SHORT OF BREATH PULSE OX DROPPING TO 86% WHILE EATING. PATIENT HAD TO STOP AND TAKE SOME DEEP BREATHS AND COUGH TO BRING PULSE OX BACK UP. OXYGEN STILL AT 5 LITERS NC
--- NOTE | 2018-12-20 12:45 | NUR ---
NAPPING AT INTERVALS NO DISTRESS AT THIS TIME. CARDIZEM GTT STILLL AT 10 MG HOUR
--- NOTE | 2018-12-20 13:15 | NUR ---
EPIDURAL REMOVED PER . PATIENT TOLERATED WELL. NO DISTRESS. WILDER CATH DC'D
--- NOTE | 2018-12-20 14:00 | NUR ---
COMPLETED BED BATH GIVEN WITH LINEN CHANGE TOLERATED WELL
--- NOTE | 2018-12-20 14:30 | NUR ---
UP IN CHAIR AT BEDSIDE. GAIT POOR HARD TIME WALKING FROM BED TO CHAIR. COULD NOT STAND UP STRAIGHT. TOLERATED FAIR. NO SHORTNESS OF BREATH. WEAK AND SORE. CHEST TUBE INTACT. WILDER CATH DC'D. IV PATENT RIGHT SUBCLAVIAN
--- NOTE | 2018-12-20 15:30 | NUR ---
RETURNED TO BED AT PATIENT REQUEST. STILL POOR GAIT AND NOT ABLE TO STAND UP OR AMBULATE. CHEST TUBE INTACT. TO 20 CM SUCTION AND SEROUS DRAINAGE. DRESSING CHANGED SATURATED IN SEROUS FLUID. TOLERATED FAIR
--- NOTE | 2018-12-20 16:30 | NUR ---
NAPPING ON RIGHT SIDE. NO DISTRESS.
--- NOTE | 2018-12-20 17:15 | NUR ---
PAGE BOLAND SERVED. REPOSITIONED IN BED. VISITORS HERE.
--- NOTE | 2018-12-20 17:57 | NUR ---
family here update given. ate well at dinner. no distress
--- NOTE | 2018-12-20 18:30 | NUR ---
up to bedside commode voided 600cc karlee concentrated urine. standing improved. still needs assistances to stand. chest tube intact. did get short of breath after returning to bed.
[2018-12-20 20:06] LABS: ACID FAST SMEAR Negative (()); AFB SPECIMEN PROCESSING Concentration (())
[2018-12-21] VITALS (24 sets, daily range): BP systolic 83–109; BP diastolic 41–57
[2018-12-21 06:26] LABS: HEMATOCRIT 31.4 % (36.0-48.0); MCH 27.5 pg (26.0-34.0); MCHC 31.8 g/dL (31.0-37.0); MCV 86.5 fL (80.0-100.0); MEAN PLATELET VOLUME 11.9 fL (7.4-10.4); RBC 3.63 10x6/uL (4.00-5.40); WBC 12.8 10x3/uL (4.8-10.8)
--- NOTE | 2018-12-21 06:46 | NUR ---
pt resting well vss no s/s of distress, meds given water provided, all needs met all safety measures in place, call light in reach will continue to monitor.
[2018-12-21 07:03] LABS: ALBUMIN 1.6 g/dL (3.4-5.0); ALKALINE PHOSPHATASE 93 U/L (46-116); ALT (SGPT) 27 U/L (10-68); BILIRUBIN - TOTAL 0.29 mg/dL (0.2-1.3); CALC OSMOLALITY 277 mosm/kg (275-300); CALCIUM 8.3 mg/dL (8.5-10.1); CARBON DIOXIDE 26.8 mmol/L (21.0-32.0); CHLORIDE - SERUM 106 mmol/L (98-107); CREATININE - SERUM 0.4 mg/dL (0.6-1.3); GLUCOSE 95 mg/dL (74-106); POTASSIUM - SERUM 3.6 mmol/L (3.5-5.1); PROTEIN - SERUM 6.1 g/dL (6.4-8.2); SODIUM 140 mmol/L (136-145); UREA NITROGEN 9 mg/dL (7-18); eGFR NON AFRICAN AMERICAN > 90 mL/min (90-120)
--- NOTE | 2018-12-21 07:30 | NUR ---
awakes easily to verbal stimuli skin warm and dry. chest left side to 20 cm suction no air leak noted. serous fluid drainage. flucuates with resp. up to bsc to void, clear karlee urine. monitor sr. incision left lateral back intact without drainage or redness. abd soft. no compliant of pain.
--- NOTE | 2018-12-21 08:30 | NUR ---
breakfast served. good appetite.
--- NOTE | 2018-12-21 09:30 | NUR ---
up in chair at bedside per physical therapy. tried to ambulate to door, became short of breath. good cough effort. difficulty moving legs feet to walk.
--- NOTE | 2018-12-21 11:30 | NUR ---
lunch served good appetite. good cough effort. chest tube intact no change. napping at intervals in the chair. po fluids taken well.
--- NOTE | 2018-12-21 12:30 | NUR ---
dr. hidalgo here. talked with patient.
--- NOTE | 2018-12-21 14:15 | NUR ---
TO CT PER BED WITH PORTABLE OXYGEN, AND MONITOR. TOLERATED FAIR.
--- NOTE | 2018-12-21 15:30 | NUR ---
PAIN MEDS REQUESTED BY PATIENT. PO MEDS TAKEN WITHOUT DIFFICULTY. GOOD COUGH. IN BED. CHEST TUBE TO 20 CM SUCTION 314 SEROUS FLUID OUT THIS SHIFT. PATIENT DOES GET SHORT OF BREATH WITH MINIMAL ACTIVITY. PULSE OX INCREASES WITH DEEP BREATHING.
--- NOTE | 2018-12-21 16:48 | NUR ---
CRISTOPHER BOLAND SERVED. DR. DAWN HERE
--- NOTE | 2018-12-21 17:43 | NUR ---
NO DISTRESS. GOOD COUGH. CHEST INTACT MONITOR SR. CARDIZE GTT OFF SINCE 1130
--- NOTE | 2018-12-21 19:31 | NUR ---
PY LAYING IN BED WITH LIGHTS OFF. AAOX4. PERRLA. VERY SOFT SPOKEN, HARD TO HEAR. DENIES PAIN. VOICES NO CONERNS OR REQUESTS. FRESH ICE WATER PROVIDED. LEFT CHEST TUBE NOTED. LEFT SUBCLAVIAN CVL NOTED. ASSESSMENT COMPLETE. SEE FLOWSHEET FOR DETAILS.
--- NOTE | 2018-12-21 22:05 | NUR ---
ALERTED NURSE VIA CALL GODINEZ SYSTEM. PLACED ON BED KIM.
--- NOTE | 2018-12-21 22:24 | NUR ---
ZERO URINE IN BED KIM. URINE ALL OVER GOWNS AND LINENS. PARTIAL BATH GIVEN. LINENS CHANGED.
--- NOTE | 2018-12-21 23:10 | NUR ---
C/O PAIN LOCATED IN CHEST TUBE INCISION RATING IT A 7 OUT OF TEN. PRN PAIN MED GIVEN. SEE MAR FOR FULL DETAILS.
[2018-12-22] VITALS (17 sets, daily range): BP systolic 87–109; BP diastolic 41–65
--- NOTE | 2018-12-22 00:02 | NUR ---
REASSESSMENT COMPLETE. NO CHANGES NOTED IN PT CONDITION.
--- NOTE | 2018-12-22 01:31 | NUR ---
ALERTED NURSE VIA CALL GODINEZ SYSTEM. PLACED ON BED KMI.
[2018-12-22 06:37] LABS: HEMATOCRIT 30.1 % (36.0-48.0); HEMOGLOBIN 9.5 g/dL (12-16); MCH 27.4 pg (26.0-34.0); MCHC 31.6 g/dL (31.0-37.0); MCV 86.7 fL (80.0-100.0); MEAN PLATELET VOLUME 11.5 fL (7.4-10.4); RBC 3.47 10x6/uL (4.00-5.40); RDW 16.3 % (11.5-14.5); WBC 11.5 10x3/uL (4.8-10.8)
[2018-12-22 06:55] LABS: ALBUMIN 1.6 g/dL (3.4-5.0); ALKALINE PHOSPHATASE 81 U/L (46-116); CALC OSMOLALITY 276 mosm/kg (275-300); CALCIUM 8.3 mg/dL (8.5-10.1); CARBON DIOXIDE 26.8 mmol/L (21.0-32.0); CHLORIDE - SERUM 106 mmol/L (98-107); CREATININE - SERUM 0.5 mg/dL (0.6-1.3); GLUCOSE 104 mg/dL (74-106); POTASSIUM - SERUM 4.1 mmol/L (3.5-5.1); SODIUM 140 mmol/L (136-145); UREA NITROGEN 7 mg/dL (7-18); eGFR NON AFRICAN AMERICAN > 90 mL/min (90-120)
[2018-12-22 07:02] LABS: ALT (SGPT) 20 U/L (10-68)
--- NOTE | 2018-12-22 09:46 | NUR ---
ASSISTED PT WITH BED KIM TO VOID. DR ONEILL HERE THIS AM. SPOKE TO DR HAND RE: BRONCHOSCOPY. PT NPO X CARDIZEM W/ SIP WATER. [facility] CONCENTS SIGNED.
--- NOTE | 2018-12-22 11:16 | NUR ---
PT WITH SHORT RUN OF AFIB. NOTIFIED [place] WITH DR ONEILL.
--- NOTE | 2018-12-22 11:54 | NUR ---
BRONCHOSCOPY DONE BY DR HAND. DR ONEILL AT WELL. VS REMAIN STABLE THROUGHOUT PROCEDURE. VERSED 2MG, ZOFRAN 4MG, MS 2MG GIVEN.
--- NOTE | 2018-12-22 13:58 | NUR ---
Reviewed chart and spoke with pt Pt is on a regular diet with good po intake Pt reports eating well and tolerating diet well Pt has no questions about nutrition at this time. RD following
[2018-12-22 14:14] LABS: FUNGUS STAIN Final report (())
[2018-12-23] VITALS (12 sets, daily range): BP systolic 84–110; BP diastolic 44–69
--- NOTE | 2018-12-23 03:30 | NUR ---
PT ASSISTED USING BEDPAN PER REQUEST. MOVES INDEPENDENTLY. COOPERATIVE. DENIES PAIN.
[2018-12-23 06:09] LABS: BASOPHILS 0.1 % (0-2); EOSINOPHILS 2.9 % (0-7); HEMATOCRIT 28.9 % (36.0-48.0); HEMOGLOBIN 9.1 g/dL (12-16); IMMATURE GRANULOCYTES 0.3 % (0-5); LYMPHOCYTES 13.5 % (15-50); MCH 27.7 pg (26.0-34.0); MCHC 31.5 g/dL (31.0-37.0); MCV 88.1 fL (80.0-100.0); MEAN PLATELET VOLUME 11.1 fL (7.4-10.4); MONOCYTES 13.3 % (2-11); NEUTROPHILS 69.9 % (40-80); PLATELET COUNT 270 10x3/uL (130-400); RBC 3.28 10x6/uL (4.00-5.40); RDW 16.1 % (11.5-14.5); WBC 11.6 10x3/uL (4.8-10.8)
[2018-12-23 06:37] LABS: ALBUMIN 1.6 g/dL (3.4-5.0); ALKALINE PHOSPHATASE 78 U/L (46-116); ALT (SGPT) 20 U/L (10-68); BILIRUBIN - TOTAL 0.16 mg/dL (0.2-1.3); CALC OSMOLALITY 276 mosm/kg (275-300); CALCIUM 8.2 mg/dL (8.5-10.1); CARBON DIOXIDE 26.4 mmol/L (21.0-32.0); CHLORIDE - SERUM 104 mmol/L (98-107); CREATININE - SERUM 0.5 mg/dL (0.6-1.3); GLUCOSE 150 mg/dL (74-106); MAGNESIUM - SERUM 1.6 mg/dL (1.8-2.4); PHOSPHOROUS 3.6 mg/dL (2.5-4.9); POTASSIUM - SERUM 3.9 mmol/L (3.5-5.1); PROTEIN - SERUM 5.9 g/dL (6.4-8.2); SODIUM 138 mmol/L (136-145); UREA NITROGEN 8 mg/dL (7-18); eGFR NON AFRICAN AMERICAN > 90 mL/min (90-120)
--- NOTE | 2018-12-23 15:07 | NUR ---
BRONCHOSCOPY DONE AT BS BY RT AND DR HAND. 4MG VERSED, 4MG MS AND ZOFRAN GIVEN PREOP. PT RUDDY WELL. PT WAKES UP AND IS FOLLOWING DIRECTION POST PROCEDURE. VSS ON CM.
[2018-12-23 17:11] LABS: ACID FAST SMEAR Negative (()); AFB SPECIMEN PROCESSING Concentration (())
--- NOTE | 2018-12-23 23:00 | NUR ---
PTS CARDIAC RYTHMN CHANGED FROM NSR TO A-FIB WITH RVR. ASYMPTOMATIC AT THIS TIME. WILL NOTIFY CARDIOLOGY.
--- NOTE | 2018-12-23 23:20 | NUR ---
DR MCCOY NOTIFIED VIA PHONE OF PTS A-FIB. NEW ORDER RECIEVED FOR SOTALOL 80MG BID PO.
[2018-12-24] VITALS (21 sets, daily range): BP systolic 76–103; BP diastolic 44–63
[2018-12-24 05:34] LABS: BASOPHILS 0.3 % (0-2); EOSINOPHILS 3.5 % (0-7); HEMATOCRIT 31.1 % (36.0-48.0); HEMOGLOBIN 9.8 g/dL (12-16); IMMATURE GRANULOCYTES 0.5 % (0-5); LYMPHOCYTES 14.3 % (15-50); MCH 27.8 pg (26.0-34.0); MCHC 31.5 g/dL (31.0-37.0); MCV 88.1 fL (80.0-100.0); MEAN PLATELET VOLUME 10.9 fL (7.4-10.4); MONOCYTES 12.6 % (2-11); NEUTROPHILS 68.8 % (40-80); PLATELET COUNT 300 10x3/uL (130-400); RBC 3.53 10x6/uL (4.00-5.40); RDW 15.9 % (11.5-14.5); WBC 13.3 10x3/uL (4.8-10.8)
[2018-12-24 06:01] LABS: CALC OSMOLALITY 276 mosm/kg (275-300); CALCIUM 8.3 mg/dL (8.5-10.1); CARBON DIOXIDE 28.1 mmol/L (21.0-32.0); CHLORIDE - SERUM 104 mmol/L (98-107); CREATININE - SERUM 0.6 mg/dL (0.6-1.3); GLUCOSE 156 mg/dL (74-106); POTASSIUM - SERUM 4.3 mmol/L (3.5-5.1); SODIUM 138 mmol/L (136-145); UREA NITROGEN 8 mg/dL (7-18); eGFR NON AFRICAN AMERICAN > 90 mL/min (90-120)
--- NOTE | 2018-12-24 07:00 | NUR ---
AWAKES EASILY TO VERBAL STIMULI SKIN WARM AND DRY. MONITOR ATRIAL FIB RATE BELOW 120. CHEST LEFT LATERAL TO 20 CM SUCTION SEROUS DRAINAGE. NO AIR LEAK. NS AT KVO INFUSING LEFT SUBCLAVIAN. DRESSING DRY AND INTACT. HEAD OF BED ELEVATED 30 DEGREES. NO DISTRESS NOTED
--- NOTE | 2018-12-24 08:00 | NUR ---
BREAKFAST SERVED ATE WELL. TAKING PO FLUIDS WELL.UP TO CHAIR AT BEDSIDE. ON BSC. VOIDED CLEAR ARI URINE. WEAK COUGH. AMBULATING BETTER. STILL NEEDS ASSISTANCES.
--- NOTE | 2018-12-24 09:15 | NUR ---
BLOOD DRAWN FOR VANCOMYCIN LEVEL. TOLERATING UP IN CHAIR WELL. POOR COUGH EFFORT
--- NOTE | 2018-12-24 10:30 | NUR ---
UP IN CHAIR AT BEDSIDE. BLOOD PRESSURE LOW. STATES SHE GETS DIZZY AT TIMES. NO DISTRESS. RECHECKED BLOOD PRESSURE AND REPOSITIONED BLOOD PRESSURE CUFF. DR. ONEILL HERE
--- NOTE | 2018-12-24 10:52 | NUR ---
DR. MCCOY NOTIFIED OF BLOOD PRESSURE AND HEART RATE. ORDERS RECEIVED TO MIGUEL. RUTHIE
--- NOTE | 2018-12-24 11:15 | NUR ---
LUNCH SERVED ATE WELL. NO DISTRESS UP TO BSC.
--- NOTE | 2018-12-24 12:20 | NUR ---
BACK TO BED FOR MID LINE PLACEMENT. HERE UP DATE GIVEN
--- NOTE | 2018-12-24 13:19 | NUR ---
Regular diet ordered with 75-80% intake of meals Pt reports she continues to eat well. Pt reports she is tolerating diet with no problems Pt reports no nutritional needs or requests and no questions about diet Reviewed chart RD following
--- NOTE | 2018-12-24 13:41 | NUR ---
MIDLINE INSERTED LEFT UPPER ARM PATIENT TOLERATED FAIR.
--- NOTE | 2018-12-24 14:30 | NUR ---
ON BIPAP FOR 50 MIN. STATES IT IS HURTING HER NOSE. PLACED BACK ON 6 LITERS NC. LEFT SUBCLAVIAN CATH REMOVED. NO REDNESS OR DRAINAGE AT SITE. NEW IV LINES AND NEW IV BAG TO LEFT UPPER ARM MIDLINE NS AT KVO STARTED. PATIENT WATCHING TV. USING INCENTIVE SPIROMETRY AROUND 500 ML. POOR COUGH EFFORT. NO DISTRESS LAYING IN THE BED. CHEST INTACT WITH NO AIR LEAK NOTED. 20 CM SUCTION SEROUS DRAINAGE.
[2018-12-24 15:19] LABS: FUNGUS STAIN Final report (())
--- NOTE | 2018-12-24 16:00 | NUR ---
complete bed bath given with line change. hair washed. dressing change to chest tube site. site without redness. serous drainage noted on dressing. site clean with betadine. 4x4 applied. secure with tegradderm. patient tolerated well.
--- NOTE | 2018-12-24 17:12 | NUR ---
supper tray served. ate well. watching tv talking on phone. no distress. coughing improved. monitor sr
--- NOTE | 2018-12-24 18:33 | NUR ---
up to bedside commode voided clear karlee urine. still passing alot of gas ambulation improving
--- NOTE | 2018-12-24 19:07 | NUR ---
REPORT RECEIVED, SHIFT ASSESSMENT COMPLETED PER FLOW SHEET. AAOX4. PPP. LT UPPER ARM MIDLINE PATENT, DRESSING C/D/I, NO SIGNS OF INFECTION OR INFILTRATION. COUGH/DEEP BREATHING AND USE OF IS ENCOURAGED. YUKI KIMBROUGH AND SCD'S ON. ASSISSTED OOB TO USE BEDSIDE COMMODER PER PATIENT'S REQUEST, 410 MLS OF YELLOW URINE NOTED. ASSISSTED BACK IN BED. DENIES OTHER NEEDS. CALL LIGHT WITHIN REACH. WILL CONTINUE TO MONITOR.
--- NOTE | 2018-12-24 21:01 | NUR ---
SCHEDULED MEDS GIVEN, WATER WITH ICE PROVIDED, NO DYSPHAGIA. ASSISSTED OOB TO BEDSIDE COMMODE, 450 MLS OF YELLOW URINE NOTED, ASSISSTED BACK IN BED. DENIES OTHER NEEDS. CALL LIGHT WITHIN REACH. WILL CONTINUE TO MONITOR.
--- NOTE | 2018-12-24 22:11 | NUR ---
ASSISSTED OOB TO USE BEDSIDE COMMODE, LARGE FORMED WILLIAMS BM NOTED. ASSISSTED BACK IN BED. DENIES OTHER NEEDS. CALL LIGHT WITHIN REACH. WILL CONTINUE TO MONITOR.
--- NOTE | 2018-12-24 23:01 | NUR ---
REASSESSMENT COMPLETED PER FLOW SHEET, SEE FOR DETAILS. NO ACUTE CHANGES NOTED. VSS. ASSISSTED TO BEDSIDE COMMODE, 480 MLS OF YELLOW UOP NOTED, ASSISSTED BACK IN BED. DENIES OTHER NEEDS. CALL LIGHT WITHIN REACH.
[2018-12-25] VITALS (45 sets, daily range): BP systolic 87–107; BP diastolic 45–71
--- NOTE | 2018-12-25 01:00 | NUR ---
RESTING, DENIES NEEDS, WILL CONTINUE TO MONITOR.
--- NOTE | 2018-12-25 03:02 | NUR ---
REASSESSMENT COMPLETED PER FLOW SHEET, SEE FOR DETAILS. DENIES NEEDS. WILL CONTINUE TO MONITOR.
[2018-12-25 04:45] LABS: BASOPHILS 0.3 % (0-2); EOSINOPHILS 4.6 % (0-7); HEMATOCRIT 30.8 % (36.0-48.0); HEMOGLOBIN 9.6 g/dL (12-16); IMMATURE GRANULOCYTES 0.8 % (0-5); LYMPHOCYTES 24.4 % (15-50); MCH 27.3 pg (26.0-34.0); MCHC 31.2 g/dL (31.0-37.0); MCV 87.5 fL (80.0-100.0); MEAN PLATELET VOLUME 11.3 fL (7.4-10.4); MONOCYTES 10.9 % (2-11); PLATELET COUNT 293 10x3/uL (130-400); RBC 3.52 10x6/uL (4.00-5.40); RDW 15.7 % (11.5-14.5); WBC 11.2 10x3/uL (4.8-10.8)
[2018-12-25 04:52] LABS: CALC OSMOLALITY 276 mosm/kg (275-300); CALCIUM 8.3 mg/dL (8.5-10.1); CARBON DIOXIDE 29.2 mmol/L (21.0-32.0); CHLORIDE - SERUM 104 mmol/L (98-107); CREATININE - SERUM 0.5 mg/dL (0.6-1.3); POTASSIUM - SERUM 3.7 mmol/L (3.5-5.1); SODIUM 140 mmol/L (136-145); UREA NITROGEN 7 mg/dL (7-18); eGFR NON AFRICAN AMERICAN > 90 mL/min (90-120)
--- NOTE | 2018-12-25 05:00 | NUR ---
RESTING, VSS, WILL CONTINUE TO MONITOR.
[2018-12-25 05:07] LABS: GLUCOSE 94 mg/dL (74-106)
--- NOTE | 2018-12-25 19:00 | NUR ---
REPORT RECEIVED. ASSESSMENT COMPLETE PER FLOW SHEET. VSS. PT UP IN CHAIR AT THIS TIME. O2 VIA NC 6L O2 SAT 97% COUGH/DEEP BREATHE ENCOURAGED STRONG COUGH PRESENT. L LAT CHEST INCISION NOTED OPEN TO AIR CT X1 NOTED TO GRAVITY DRAIN SEROUS DRAINAGE NOTED. BS ACITVE X4. HR 84 NSR. TEDS SCD'S ON SKIN CDI. ANJANA NEEDS. WILL CONTINUE TO MONITOR
--- NOTE | 2018-12-25 20:08 | NUR ---
ASSISTED TO BEDSIDE COMMODE. 200 CC DARK ARI URINE NOTED. ASSISTED BACK TO BED WITHOUT DIFFUCLTY. VSS DENIES NEEDS. WILL CONTINUE TO MONITOR
--- NOTE | 2018-12-25 21:22 | NUR ---
2100 MEDS ADM WITHOUT DIFFICULTY. PT REFUSED SENNA AND MIRALAX STATED HAVING MULTIPLE BM'S AT THIS TIME. DENIES NEEDS. GIVEN WATER FOR COMFORT WILL CONTINUE TO MONITOR
--- NOTE | 2018-12-25 23:20 | NUR ---
REASSESSMENT COMPLETE PER FLOW SHEET. VSS NO NEW CHANGES PT SLEEPING COMFORTABLY WILL CONTINUE TO MONITOR
[2018-12-26] VITALS (24 sets, daily range): BP systolic 80–100; BP diastolic 35–62
--- NOTE | 2018-12-26 01:10 | NUR ---
PT ASSSISTED TO BEDSIDE COMMODE. 100 CC ARI URINE NOTED. PT BACK TO BED AT THIS TIME. VSS. NO NEW CHANGES WILL CONTNIUE TO MONITOR
--- NOTE | 2018-12-26 03:15 | NUR ---
REASSESMENT COMPLETE PER FLOW SHEET. VSS. NO NEW CHANGES WILL CONTNUE TO MONITOR
--- NOTE | 2018-12-26 03:59 | NUR ---
RADIOLOGY AT BEDSIDE. XR OBTAINED
[2018-12-26 06:37] LABS: CALC OSMOLALITY 274 mosm/kg (275-300); CALCIUM 8.4 mg/dL (8.5-10.1); CARBON DIOXIDE 27.9 mmol/L (21.0-32.0); CHLORIDE - SERUM 104 mmol/L (98-107); CREATININE - SERUM 0.5 mg/dL (0.6-1.3); GLUCOSE 98 mg/dL (74-106); POTASSIUM - SERUM 4.1 mmol/L (3.5-5.1); SODIUM 138 mmol/L (136-145); eGFR NON AFRICAN AMERICAN > 90 mL/min (90-120)
[2018-12-26 06:38] LABS: UREA NITROGEN 9 mg/dL (7-18)
[2018-12-26 06:46] LABS: BASOPHILS 0.3 % (0-2); HEMATOCRIT 30.5 % (36.0-48.0); HEMOGLOBIN 9.6 g/dL (12-16); IMMATURE GRANULOCYTES 0.8 % (0-5); LYMPHOCYTES 26.2 % (15-50); MCH 27.6 pg (26.0-34.0); MCHC 31.5 g/dL (31.0-37.0); MCV 87.6 fL (80.0-100.0); MONOCYTES 10.6 % (2-11); NEUTROPHILS 57.1 % (40-80); PLATELET COUNT 278 10x3/uL (130-400); RBC 3.48 10x6/uL (4.00-5.40); RDW 15.8 % (11.5-14.5); WBC 12.7 10x3/uL (4.8-10.8)
--- NOTE | 2018-12-26 10:09 | NUR ---
Nutrition Follow Up: Chart reviewed. Noted pt is POD 11 pulmonary resection. Diet: NPO - previously regular PO Intake: 76% meal avg Wt stable BM: 12/25/18 I<O Meds and labs reviewed Rec continue regular diet as tolerated. RD following.
[2018-12-26 16:12] LABS: FUNGUS CULTURE RESULT 1 Candida albicans (())
--- NOTE | 2018-12-26 16:20 | NUR ---
BEDSIDE BRONCH DONE BY DR. HAND. PRE MEDICATED WITH 4MG MORPHINE, 4 MG ZOFRAN AND 4 MG VERSED. SPECIMEN TO LAB FOR CULTURE.
--- NOTE | 2018-12-26 21:09 | NUR ---
1900 REPORT RECEIVED CARE ASSUMED. PT LAYING IN BED RESTING. VERBALIZES NO COMPLAINTS. FLUID ENCOURAGED. COUGHING AND DEEP BREATHING ENCOURAGED. IS 500 POOR EFFORT. ASSESSMENT DONE SEE FLOW SHEET. VSS. NO SIGNS OF ACUTE DISTRESSS NOTED. 2100 MEDS GIVEN PER JAN. NO SIGNS OF ACUTE DISTRESS NOTED. WATER ENCOURAGED. COUGHING AND DEEP BREATHING ENCOURAGED. NO SIGNS OF ACUTE DISTRESS NOTED. WILL CONTINUE TO MONITOR. WILL CONTINUE TO MONITOR.
--- NOTE | 2018-12-26 23:00 | NUR ---
REASSESSMENT DONE SEE FLOW SHEET. VSS. IS 500. COUGH AND DEEP BREATHING ENCOURAGED.
[2018-12-27] VITALS (23 sets, daily range): BP systolic 81–111; BP diastolic 42–59
--- NOTE | 2018-12-27 01:00 | NUR ---
WATER PROVIDED. PT ENCOURAGED TO DRINK. COUGHING AND DEEP BREATHING NOTED WILL CONTINUE TO MONITOR.
--- NOTE | 2018-12-27 02:00 | NUR ---
PT AMBULATED TO [facility] WITH MINIMAL ASSITANCE. IS 750. WILL CONTINUE TO MONITOR.
--- NOTE | 2018-12-27 05:54 | NUR ---
0300 REASSESSMENT DONE SEE FLOW SHEET. VSS. 0500 COMPLETE BED BATH GIVEN. LINEN CHANGE PROVIDED. PT ABLE TO AMBULATE TO CHAIR MINIMAL ASSITANCE. WILL CONTINUE TO MONITOR.
[2018-12-27 06:15] LABS: BASOPHILS 0.5 % (0-2); EOSINOPHILS 4.1 % (0-7); HEMATOCRIT 33.4 % (36.0-48.0); HEMOGLOBIN 10.4 g/dL (12-16); IMMATURE GRANULOCYTES 0.7 % (0-5); LYMPHOCYTES 17.3 % (15-50); MCH 27.5 pg (26.0-34.0); MCHC 31.1 g/dL (31.0-37.0); MCV 88.4 fL (80.0-100.0); MEAN PLATELET VOLUME 11.1 fL (7.4-10.4); MONOCYTES 8.7 % (2-11); NEUTROPHILS 68.7 % (40-80); PLATELET COUNT 282 10x3/uL (130-400); RBC 3.78 10x6/uL (4.00-5.40); RDW 15.9 % (11.5-14.5); WBC 12.1 10x3/uL (4.8-10.8)
[2018-12-27 06:21] LABS: CALC OSMOLALITY 276 mosm/kg (275-300); CALCIUM 8.5 mg/dL (8.5-10.1); CARBON DIOXIDE 28.6 mmol/L (21.0-32.0); CHLORIDE - SERUM 103 mmol/L (98-107); CREATININE - SERUM 0.6 mg/dL (0.6-1.3); GLUCOSE 112 mg/dL (74-106); POTASSIUM - SERUM 4.1 mmol/L (3.5-5.1); SODIUM 139 mmol/L (136-145); UREA NITROGEN 8 mg/dL (7-18); eGFR NON AFRICAN AMERICAN > 90 mL/min (90-120)
--- NOTE | 2018-12-27 07:00 | NUR ---
REC'D CARE OF PT. SITTING IN CHAIR. A&O X3. DENIES NEEDS EXCEPT WANTS COFFEE. OBLIGED.
--- NOTE | 2018-12-27 07:38 | NUR ---
BREAKFAST TRAY SERVED.
--- NOTE | 2018-12-27 08:45 | NUR ---
TO BEDSIDE COMMODE WITH ASSISTANCE. UNSTEADY GATE. TO BED FROM BEDSIDE COMMODE.
--- NOTE | 2018-12-27 09:18 | NUR ---
AMBULATED WITH PT AND BACK TO BED.
--- NOTE | 2018-12-27 09:23 | NUR ---
ENCOURAGED COUGH AND DEEP BREATHING.
--- NOTE | 2018-12-27 10:26 | NUR ---
REPORT GAVE TO PEYTON PABON RN AND SHE ASSUMED CARE.
--- NOTE | 2018-12-27 11:30 | NUR ---
L CHEST TUBE DC'D BY DR. VARELA. VASELINE GAUZE AND 4X4 TO SITE.
--- NOTE | 2018-12-27 19:00 | NUR ---
REPORT RECIEVED, SHIFT ASSESSMENT COMPLETE, PLEASE SEE FLOW SHEETS FOR DETAILS. DEEP BREATHING AND COUGHING EXERCISES DONE. UP TO RESTROOM, VOID NOTED. BACK TO BED WITH LITTLE ASSIST. VSS, BED LOW AND LOCKED, CALL LIGHT IN REACH, WILL CPOC.
--- NOTE | 2018-12-27 22:34 | NUR ---
REASSESSMENT COMPLETE, PLEASE SEE FLOW SHEETS FOR DETAILS. NO ACUTE CHANGES FROM PREVIOUS ASSESSMENT TO NOTE. DENIES PAIN/NEEDS, VSS, BED LOW AND LOCKED, CALL LIGHT IN REACH. WILL CPOC.
--- NOTE | 2018-12-27 23:12 | NUR ---
OBSERVED 1000 ON I.S. UP TO CAMODE, VOIDED. BACK TO BED, TOLERATED ACTIVITY WELL. DENIES ANY OTHER NEEDS, VSS, BED LOW AND LOCKED, WILL CPOC.
[2018-12-28] VITALS (22 sets, daily range): BP systolic 86–110; BP diastolic 46–66
--- NOTE | 2018-12-28 01:00 | NUR ---
UP TO CAMODE, TOLERATED WELL. VERY LITTLE ASSIST. VOIDED. PROVIDED PAIN PILL PER REQUEST. BACK TO BED WITH NO ASSIST. VSS, BED LOW AND LOCKED, CALL LIGHT IN REACH. WILL CPOC.
--- NOTE | 2018-12-28 03:00 | NUR ---
REASSESSMENT COMPLETE, PLEASE SEE FLOW SHEETS FOR DETAILS. NO ACUTE CHANGES FROM PREVIOUS ASSESSMENT TO NOTE. FULL BED BATH AND LINEN CHANGE ASSISTED WITH. PATIENT UP TO CAMODE TO VOID. TOLERATES ACTIVITY WELL. DENIES PAIN/NEEDS ATT. VSS, BED LOW AND LOCKED. CALL LIGHT IN REACH. WILL CPOC.
--- NOTE | 2018-12-28 04:35 | NUR ---
ACCOMPANIED TO RADIOLOGY, TOLERATED WELL. VOIDED AND UP TO CHAIR. CHAIR LOCKED, VSS, CALL LIGHT IN REACH. WILL CPOC.
--- NOTE | 2018-12-28 05:00 | NUR ---
ENCOURAGED I.S., DEEP BREATHING AND COUGHING.
[2018-12-28 05:05] LABS: BASOPHILS 0.5 % (0-2); EOSINOPHILS 4.5 % (0-7); HEMATOCRIT 31.4 % (36.0-48.0); IMMATURE GRANULOCYTES 0.7 % (0-5); LYMPHOCYTES 19.6 % (15-50); MCH 27.6 pg (26.0-34.0); MCHC 31.8 g/dL (31.0-37.0); MCV 86.7 fL (80.0-100.0); MEAN PLATELET VOLUME 10.6 fL (7.4-10.4); NEUTROPHILS 63.7 % (40-80); PLATELET COUNT 266 10x3/uL (130-400); RBC 3.62 10x6/uL (4.00-5.40); RDW 15.8 % (11.5-14.5); WBC 11.8 10x3/uL (4.8-10.8)
[2018-12-28 05:24] LABS: ALBUMIN 2.1 g/dL (3.4-5.0); ALKALINE PHOSPHATASE 74 U/L (46-116); ALT (SGPT) 28 U/L (10-68); BILIRUBIN - TOTAL 0.19 mg/dL (0.2-1.3); CALC OSMOLALITY 274 mosm/kg (275-300); CALCIUM 8.8 mg/dL (8.5-10.1); CARBON DIOXIDE 28.2 mmol/L (21.0-32.0); CHLORIDE - SERUM 104 mmol/L (98-107); CREATININE - SERUM 0.5 mg/dL (0.6-1.3); GLUCOSE 122 mg/dL (74-106); POTASSIUM - SERUM 3.9 mmol/L (3.5-5.1); PROTEIN - SERUM 6.7 g/dL (6.4-8.2); SODIUM 138 mmol/L (136-145); UREA NITROGEN 7 mg/dL (7-18); eGFR NON AFRICAN AMERICAN > 90 mL/min (90-120)
--- NOTE | 2018-12-28 18:57 | MORECARE ---
CASE MANAGEMENT DISCHARGE SUMMARY PATIENT: CHRISTEL AYON UNIT: [id number] ADM DATE: 12/15/18 AGE: 58 : 64 SEX: F ROOM/BED: D.03 AUTHOR: DARLINE,DOC PHYSICIAN: REFERRING PHYSICIAN: DENNIS VARELA MD DATE OF SERVICE: 12/28/18 Discharge Plan Patient Name: CHRISTEL AYON Facility: [facility]:[place] : 1960 Planned Disposition: Home Anticipated Discharge Date: Discharge Date: Expected LOS: Initial Reviewer: [email or web address] Initial Review Date: 12/15/2018 Generated: 12/28/18 7:57 pm Comments DCP- Discharge Planning Updated by [email or web address]: Guerline Nicole on 12/16/18 4:[address] Patient Name: CHRISTEL AYON Admission Status: Elective Accout number: [id number] Admission Date: 12-15-2018 : 1960 Admission Diagnosis: Attending: DENNIS VARELA Current LOS: 1 Anticipated DC Date: Planned Disposition: Home Primary Insurance: [facility] MEDICARE SOLUTIONS Discharge Planning Comments: CM met with patient at bedside after obtaining verbal consent. Patient states she plans on returning home after discharge with her . Patient states she will have family transport her home via private vehicle. Patient states she may need home health upon discharge. Patient my require walk test if 02 still needed upon discharge. CM will continue to follow and assist as needed for discharge planning / needs. Press Reader: Guerline Nicole DCPIA - Discharge Planning Initial Assessment Updated by [email or web address]: Guerline Nicole on 12/16/18 5:52 pm * Is the patient Alert and Oriented? Yes * How many steps to enter\exit or inside your home? * PCP [facility] * Pharmacy [facility] * Preadmission Environment Home with Family * ADLs Independent * Other Equipment WALKER, CANE, WHEELCHAIR, HOSPITAL BED, NEBULIZER ALL AVAILABLE IF NEEDED * List name and contact numbers for known caregivers / representatives who currently or will assist patient after discharge: RUTH ANN AYON - [facility]- [phone] * Verbal permission to speak to the caregivers and representatives has been obtained from the patient. Yes * Community resources currently utilized None * Additional services required to return to the preadmission environment? No * Can the patient safely return to the preadmission environment? Yes * Has this patient been hospitalized within the prior 30 days at any hospital? No Last DP export: 12/16/18 5:04 p Patient Name: CHRISTEL AYON Page [id number] at 1857 All edits/amendments must be made on the electronic document DICTATION DATE: 12/28/181855 MIXER LEVER OPERATOR: DAVID 12/28/181855 RPT#: [id number] DC DATE: STATUS: ADM IN [facility] [address] [place] [address] END OF REPORT
--- NOTE | 2018-12-28 19:04 | MORECARE ---
CASE MANAGEMENT DISCHARGE SUMMARY PATIENT: CHRISTEL AYON UNIT: [id number] ADM DATE: 12/15/18 AGE: 58 : 64 SEX: F ROOM/BED: D.[facility] AUTHOR: DARLINE,DOC PHYSICIAN: REFERRING PHYSICIAN: DENNIS VARELA MD DATE OF SERVICE: 12/28/18 Discharge Plan Patient Name: CHRISTEL AYON Facility: [facility]:[place] : 1960 Planned Disposition: Home Anticipated Discharge Date: Discharge Date: Expected LOS: Initial Reviewer: [email or web address] Initial Review Date: 12/15/2018 Generated: 12/28/18 8:04 pm Comments DCP- Discharge Planning Updated by [email or web address]: Aleena Fry on 12/28/18 6:[address] ORDER RECEIVED: in am check o2 requirements and arrange nebulzier with [facility] for discharge on Saturday. CM spoke to [facility] with Respiratory Therapy regarding the order. She stated she would pass this off in report in the AM for the walk test to be completed. Aleena Fry RN, [facility] DCP- Discharge Planning Updated by [email or web address]: Guerline Nicole on 12/16/18 4:[address] Patient Name: CHRISTEL AYON Admission Status: Elective Accout number: [id number] Admission Date: 12-15-2018 : 1960 Admission Diagnosis: Attending: DENNIS VARELA Current LOS: 1 Anticipated DC Date: Planned Disposition: Home Primary Insurance: [facility] MEDICARE SOLUTIONS Discharge Planning Comments: CM met with patient at bedside after obtaining verbal consent. Patient states she plans on returning home after discharge with her . Patient states she will have family transport her home via private vehicle. Patient states she may need home health upon discharge. Patient my require walk test if 02 still needed upon discharge. CM will continue to follow and assist as needed for discharge planning / needs. Gem Cutter: Guerline Nicole DCPIA - Discharge Planning Initial Assessment Updated by [email or web address]: Guerline Nicole on 12/16/18 5:52 pm * Is the patient Alert and Oriented? Yes * How many steps to enter\exit or inside your home? * PCP [facility] IN [place] * Pharmacy [facility] * Preadmission Environment Home with Family * ADLs Independent * Other Equipment WALKER, CANE, WHEELCHAIR, HOSPITAL BED, NEBULIZER ALL AVAILABLE IF NEEDED * List name and contact numbers for known caregivers / representatives who currently or will assist patient after discharge: RUTH ANN AYON - [facility]- [phone] * Verbal permission to speak to the caregivers and representatives has been obtained from the patient. Yes * Community resources currently utilized None * Additional services required to return to the preadmission environment? No * Can the patient safely return to the preadmission environment? Yes * Has this patient been hospitalized within the prior 30 days at any hospital? No Last DP export: 12/28/18 5:57 pm Patient Name: CHRISTEL AYON Page [phone] at 1904 All edits/amendments must be made on the electronic document DICTATION DATE: 12/28/181902 YOUTH SUPPORT WORKER: DAVID 12/28/181902 RPT#: [id number] DC DATE: STATUS: ADM IN [facility] [address] [place] [address] END OF REPORT
[2018-12-29] VITALS (21 sets, daily range): BP systolic 88–104; BP diastolic 45–60
--- NOTE | 2018-12-29 01:30 | NUR ---
PT AMBULATES WITHOUT DIFFICULTY. GETS UP TO BATHROOM WITHOUT REQUIRING ASSISTANCE. MILDLY SOB WITH EXERTION. BREATH SOUNDS DIMINISHED ON LEFT SIDE.
--- NOTE | 2018-12-29 11:28 | NUR ---
0700 PT RECIEVE D IN BED, ASSISTED TO CHAIR, ALERT AND ORIENTED, ON ROOM AIR, VSS, DENIES PAIN, L LAT CHEST AND POSTERIOR CHEST SITES CDI, LUE MIDLINE DRESSING CDI, PATENT, CONTINENT, DENIES ALL NEEDS 0900 ATE 75% BREAKFAST AND TOOK AM MEDS WITHOUT DIFFICULTY 1000 WALK TEST DONE WITH RT, DR HAND AND IKER AWARE OF RESULTS, HOME O2 ORDERED BY CASE MANAGEMENT, ALSO AWARE OF NEED FOR HOME NEBULIZER
--- NOTE | 2018-12-29 11:35 | MORECARE ---
CASE MANAGEMENT DISCHARGE SUMMARY PATIENT: CHRISTEL AYON UNIT: [id number] ADM DATE: 12/15/18 AGE: 58 : 64 SEX: F ROOM/BED: D.[facility] AUTHOR: DARLINE,DOC PHYSICIAN: REFERRING PHYSICIAN: DENNIS VARELA MD DATE OF SERVICE: 12/29/18 Discharge Plan Patient Name: CHRISTEL AYON Facility: [facility]:[place] : 1960 Planned Disposition: Home Anticipated Discharge Date: Discharge Date: Expected LOS: Initial Reviewer: [email or web address] Initial Review Date: 12/15/2018 Generated: 12/29/18 12:35 pm Comments DCP- Discharge Planning Updated by [email or web address]: Aleena Fry on 12/28/18 6:[address] ORDER RECEIVED: in am check o2 requirements and arrange nebulzier with duoneb for discharge on Saturday. CM spoke to [facility] with Respiratory Therapy regarding the order. She stated she would pass this off in report in the AM for the walk test to be completed. Aleena Fry RN, [facility] DCP- Discharge Planning Updated by [email or web address]: Guerline Nicole on 12/16/18 4:[address] Patient Name: CHRISTEL AYON Admission Status: Elective Accout number: [id number] Admission Date: 12-15-2018 : 1960 Admission Diagnosis: Attending: DENNIS VARELA Current LOS: 1 Anticipated DC Date: Planned Disposition: Home Primary Insurance: [facility] MEDICARE SOLUTIONS Discharge Planning Comments: CM met with patient at bedside after obtaining verbal consent. Patient states she plans on returning home after discharge with her . Patient states she will have family transport her home via private vehicle. Patient states she may need home health upon discharge. Patient my require walk test if 02 still needed upon discharge. CM will continue to follow and assist as needed for discharge planning / needs. Overweaver: Guerline Nicole DCPIA - Discharge Planning Initial Assessment Updated by [email or web address]: Guerline Nicole on 12/16/18 5:52 pm * Is the patient Alert and Oriented? Yes * How many steps to enter\exit or inside your home? * PCP [facility]ITA [place] * Pharm[place] * Preadmission Environment Home with Family * ADLs Independent * Other Equipment WALKER, CANE, WHEELCHAIR, HOSPITAL BED, NEBULIZER ALL AVAILABLE IF NEEDED * List name and contact numbers for known caregivers / representatives who currently or will assist patient after discharge: RUTH ANN AYON - SPOUSE- [phone] * Verbal permission to speak to the caregivers and representatives has been obtained from the patient. Yes * Community resources currently utilized None * Additional services required to return to the preadmission environment? No * Can the patient safely return to the preadmission environment? Yes * Has this patient been hospitalized within the prior 30 days at any hospital? No External Providers External Provider: Antionette Next Contact Date: Service Request Date: Service Type: Resolution: Reviewer: Comments: Last DP export: 12/28/18 6:04 pm Patient Name: CHRISTEL AYON Page 88729 at 1135 All edits/amendments must be made on the electronic document DICTATION DATE: 12/29/18 1135 LAB MANAGER: DAVID 12/29/18 1135 RPT#: [id number] DC DATE: STATUS: ADM IN [facility] [address] [place] [address] END OF REPORT
--- NOTE | 2018-12-29 11:59 | MORECARE ---
CASE MANAGEMENT DISCHARGE SUMMARY PATIENT: CHRISTEL AYON UNIT: [id number] ADM DATE: 12/15/18 AGE: 58 : 64 SEX: F ROOM/BED: D.[facility] AUTHOR: DARLINE,DOC PHYSICIAN: REFERRING PHYSICIAN: DENNIS VARELA MD DATE OF SERVICE: 12/29/18 Discharge Plan Patient Name: CHRISTEL AYON Facility: [facility]:[place] : 1960 Planned Disposition: Home Anticipated Discharge Date: Discharge Date: Expected LOS: Initial Reviewer: [email or web address] Initial Review Date: 12/15/2018 Generated: 12/29/18 12:59 pm Comments DCP- Discharge Planning Updated by [email or web address]: Guerline Nicole on 12/29/18 10:[address] CM spoke with patient she states she has nebulizer at home. Walk test completed. REHAN for DME completed and signed. [phone] and fax[facility] records [phone]. IMM explained and signed 12/29/18 @ 11:50. CM will continue to follow and assist as needed with discharge planning / needs. DCP- Discharge Planning Updated by [email or web address]: Aleena Fry on 12/28/18 6:[address] ORDER RECEIVED: in am check o2 requirements and arrange nebulzier with duoneb for discharge on Saturday. CM spoke to [facility] with Respiratory Therapy regarding the order. She stated she would pass this off in report in the AM for the walk test to be completed. Aleena Fry RN, [facility] DCP- Discharge Planning Updated by [email or web address]: Guerline Nicole on 12/16/18 4:[address] Patient Name: CHRISTEL AYON Admission Status: Elective Accout number: [id number] Admission Date: 12-15-2018 : 1960 Admission Diagnosis: Attending: DENNIS VARELA Current LOS: 1 Anticipated DC Date: Planned Disposition: Home Primary Insurance: [facility] MEDICARE SOLUTIONS Discharge Planning Comments: CM met with patient at bedside after obtaining verbal consent. Patient states she plans on returning home after discharge with her . Patient states she will have family transport her home via private vehicle. Patient states she may need home health upon discharge. Patient my require walk test if 02 still needed upon discharge. CM will continue to follow and assist as needed for discharge planning / needs. Legal Biller: Guerline Nicole DCPIA - Discharge Planning Initial Assessment Updated by [email or web address]: Guerline Nicole on 12/16/18 5:52 pm * Is the patient Alert and Oriented? Yes * How many steps to enter\exit or inside your home? * [facility] * Pharmacy [facility] * Preadmission Environment Home with Family * ADLs Independent * Other Equipment WALKER, CANE, WHEELCHAIR, HOSPITAL BED, NEBULIZER ALL AVAILABLE IF NEEDED * List name and contact numbers for known caregivers / representatives who currently or will assist patient after discharge: RUTH ANN AYON - SPOUSE- [phone] * Verbal permission to speak to the caregivers and representatives has been obtained from the patient. Yes * Community resources currently utilized None * Additional services required to return to the preadmission environment? No * Can the patient safely return to the preadmission environment? Yes * Has this patient been hospitalized within the prior 30 days at any hospital? No Coverage Notice Reviewer: [email or web address] - Guerline Nicole Notice Issued Date-Time: 12/29/2018 11:50 Notice Type: IM Discharge Notice Notice Delivered To: Patient Relationship to Patient: Self Territory Supervisor Name: Delivery Method: HAND - Hand Delivered Jo Days: Prior Verbal Notification: Recipient Understood Notice: Yes Recipient Signature: Yes Med Rec Note Co-signed by Attending: Coverage Notice Comment: Last DP export: 12/29/18 10:35 am Patient Name: CHRISTEL AYON Page 08882 at 1159 All edits/amendments must be made on the electronic document DICTATION DATE: 12/29/18 1158 [employer] HEAD INSPECTOR AND ADJUSTER: DAVID 12/29/18 1158 RPT#: [id number] [place] DATE: STATUS: ADM IN [facility] [address] [place] [address] END OF REPORT
--- NOTE | 2018-12-29 13:07 | NUR ---
PT REPOSITIONED IN CHAIR DENIES PAIN AND ALL NEEDS WILL CONTINUE TO MONITOR
--- NOTE | 2018-12-29 13:21 | NUR ---
Pt is on a regular diet. Pt consumed 50,50,25% of meals yesterday Pt reports she is not eating as well the past couple of days due to taste changes. Discussed the importance of nutrition while healing and provided an Ensure for trial. Pt likes Ensure. Possible d/c tomorrow Encouraged pt to continue Ensure at home if not able to eat meals. RD following
--- NOTE | 2018-12-29 14:10 | NUR ---
1400 REPORT RECIEVED AND CARE ASSUMED OF PT.. [PT IS SITTING IN CHAIR AT BEDSIDE EYES CLOSED.. WIHTOUT C/O AT PRESENT..
[2018-12-29 14:13] LABS: FUNGUS CULTURE RESULT 1 Candida albicans (())
--- NOTE | 2018-12-29 15:42 | NUR ---
1500 REASSESMENT IS COMPLETE SEE FLOW SHEET.. PT IS DOZING , STATES SHE WANTS TO GO BACK TO BED WHEN AROUSED EXPLAINED THAT SHE MUST STAY UP UNTIL AFTER DINNER..
--- NOTE | 2018-12-29 17:30 | NUR ---
1600 HOME O2 DELIVERED TO PT ROOM FROM [facility] IN [place].. 1700 DINNER TRAY SERVED TO PT.. PT FEEDING SELF WITHOUT DIFFICULTY EATING..
--- NOTE | 2018-12-29 18:20 | NUR ---
1820 RESPIRTORY TX IN PROGRESS ALETHEA ROSARIO IN THE CHAIR
--- NOTE | 2018-12-29 18:43 | NUR ---
C/O PAIN . MED GIVEN
--- NOTE | 2018-12-29 20:00 | NUR ---
PT BACK TO BED. STATES THAT SHE HAS BEEN UP TO CHAIR ALL DAY AND IS FEELING TIRED. STATES THAT SHE IS HURTING IN HER LEFT SIDE. WILL CONTINUE TO MONITOR
[2018-12-30] VITALS (7 sets, daily range): BP systolic 85–101; BP diastolic 39–52
[2018-12-30 06:12] LABS: CALC OSMOLALITY 274 mosm/kg (275-300); CALCIUM 8.5 mg/dL (8.5-10.1); CARBON DIOXIDE 25.4 mmol/L (21.0-32.0); CHLORIDE - SERUM 103 mmol/L (98-107); CREATININE - SERUM 0.6 mg/dL (0.6-1.3); GLUCOSE 97 mg/dL (74-106); MAGNESIUM - SERUM 1.9 mg/dL (1.8-2.4); PHOSPHOROUS 4.7 mg/dL (2.5-4.9); POTASSIUM - SERUM 3.6 mmol/L (3.5-5.1); SODIUM 138 mmol/L (136-145); UREA NITROGEN 10 mg/dL (7-18); eGFR NON AFRICAN AMERICAN > 90 mL/min (90-120)
[2018-12-30 06:17] LABS: BASOPHILS 0.4 % (0-2); EOSINOPHILS 3.2 % (0-7); HEMATOCRIT 32.5 % (36.0-48.0); HEMOGLOBIN 10.3 g/dL (12-16); IMMATURE GRANULOCYTES 0.5 % (0-5); LYMPHOCYTES 20.3 % (15-50); MCH 27.4 pg (26.0-34.0); MCHC 31.7 g/dL (31.0-37.0); MCV 86.4 fL (80.0-100.0); MEAN PLATELET VOLUME 11.3 fL (7.4-10.4); MONOCYTES 11.4 % (2-11); NEUTROPHILS 64.2 % (40-80); PLATELET COUNT 298 10x3/uL (130-400); RBC 3.76 10x6/uL (4.00-5.40); RDW 15.9 % (11.5-14.5)
--- NOTE | 2018-12-30 07:00 | NUR ---
SHIFT REPORT RECEIVED. AA&OX4. TALKING ON THE PHONE AT THIS TIME. REPORTS PAIN 6/10 ON L-SIDE AT INCISION SITE. ON ROOM AIR. HAS YVES MIDLINE SALINE LOCKED. L POSTERIOR CHEST INCISION WITH NO SIGNS OF INFECTION. EDGES APPROXIMATED. LEFT LATERAL SIDE PREVIOUS CT SITE WITH DRESSING CDI. SCD'S IN PLACE ON BOTH LE. SHIFT ASSESSMENT COMPLETED. SAFETY MEASURES IN PLACE. WILL CONTINUE TO MONITOR.
[2018-12-30] MEDS ORDERED: ASPIRIN EC81 M1 PO (09:16)
[2018-12-30] MEDS ORDERED: K-DUR20 MEQ PO (09:17)
[2018-12-30] MEDS ORDERED: COLACE100 MG PO (09:18)
[2018-12-30] MEDS ORDERED: PERCOCET 5-3251 TAB PO (09:19)
[2018-12-30] MEDS ORDERED: MIRALAX17 GM PO (09:19)
[2018-12-30] MEDS ORDERED: MUCINEX600 MG PO (09:41)
--- NOTE | 2018-12-30 10:23 | NUR ---
APPOINTMENT SET UP WITH DR. DAWN ON January AT 1:40PM.
--- NOTE | 2018-12-30 11:30 | NUR ---
PT UP IN WC. LEFT WITH .
--- NOTE | 2018-12-30 13:22 | MORECARE ---
CASE MANAGEMENT DISCHARGE SUMMARY PATIENT: CHRISTEL AYON UNIT: [id number] ADM DATE: 12/15/18 AGE: 58 : 64 SEX: F ROOM/BED: D[facility] AUTHOR: DARLINE,DOC PHYSICIAN: REFERRING PHYSICIAN: DENNIS VARELA MD DATE OF SERVICE: 12/30/18 Discharge Plan Patient Name: CHRISTEL AYON Facility: [facility]:[place] : 1960 Planned Disposition: Home Anticipated Discharge Date: Discharge Date: 12/30/2018 Expected LOS: Initial Reviewer: [email or web address] Initial Review Date: 12/15/2018 Generated: 12/30/18 2:22 pm Comments DCP- Discharge Planning Updated by [email or web address]: Guerline Nicole on 12/30/18 12:[address] Late Entry 12/30/18 @ 0930 Patient Name: CHRISTEL AYON Encounter No: [id number] : 1960 Primary Insurance: [facility] MEDICARE SOLUTIONS Anticipated DC Date: Planned Disposition: Home External Planned Provider: : Portable 02 has been delivered to room from [facility]. Patient denies any discharge needs. DCP follow-up note: Patient and family in agreement with discharge plan. No changes to plan. Case management will follow and assist as needed. Guerline Nicole DCP- Discharge Planning Updated by [email or web address]: Guerline Nicole on 12/29/18 10:[address] CM spoke with patient she states she has nebulizer at home. Walk test completed. REHAN for DME completed and signed. CM notified [facility] [phone] and faxed records [phone]. IMM explained and signed 12/29/18 @ 11:50. CM will continue to follow and assist as needed with discharge planning / needs. DCP- Discharge Planning Updated by [id number]: Aleena Fry on 12/28/18 6:[address] ORDER RECEIVED: in am check o2 requirements and arrange nebulzier with duoneb for discharge on Saturday. CM spoke to Kimmie with Respiratory Therapy regarding the order. She stated she would pass this off in report in the AM for the walk test to be completed. Aleena Fry RN, [facility] DCP- Discharge Planning Updated by [email or web address]: Guerline Nicole on 12/16/18 4:[address] Patient Name: CHRISTEL AYON Admission Status: Elective Accout number: [id number] Admission Date: 12-15-2018 : 1960 Admission Diagnosis: Attending: DENNIS VARELA Current LOS: 1 Anticipated DC Date: Planned Disposition: Home Primary Insurance: [facility] MEDICARE SOLUTIONS Discharge Planning Comments: CM met with patient at bedside after obtaining verbal consent. Patient states she plans on returning home after discharge with her . Patient states she will have family transport her home via private vehicle. Patient states she may need home health upon discharge. Patient my require walk test if 02 still needed upon discharge. CM will continue to follow and assist as needed for discharge planning / needs. Sound Engineering Technician: Guerline Nicole DCPIA - Discharge Planning Initial Assessment Updated by [email or web address]: Guerline Nicole on 12/16/18 5:52 pm * Is the patient Alert and Oriented? Yes * How many steps to enter\exit or inside your home? * PCP JUANITA - [facility] * Pharmacy [facility] * Preadmission Environment Home with Family * ADLs Independent * Other Equipment WALKER, CANE, WHEELCHAIR, HOSPITAL BED, NEBULIZER ALL AVAILABLE IF NEEDED * List name and contact numbers for known caregivers / representatives who currently or will assist patient after discharge: RUTH ANN AYON - SPOUSE- [phone] * Verbal permission to speak to the caregivers and representatives has been obtained from the patient. Yes * Community resources currently utilized None * Additional services required to return to the preadmission environment? No * Can the patient safely return to the preadmission environment? Yes * Has this patient been hospitalized within the prior 30 days at any hospital? No Coverage Notice Reviewer: [id number] - Guerline Nicole Notice Issued Date-Time: 12/29/2018 11:50 Notice Type: IM Discharge Notice Notice Delivered To: Patient Relationship to Patient: Self Carbide Tool Maker Name: Delivery Method: HAND - Hand Delivered Jo Days: Prior Verbal Notification: Recipient Understood Notice: Yes Recipient Signature: Yes Med Rec Note Co-signed by Attending: Coverage Notice Comment: Last DP export: 12/29/18 10:59 am Patient Name: CHRISTEL AYON Page 90164 at 1322 All edits/amendments must be made on the electronic document DICTATION DATE: 12/30/181321 DIAL REFINISHER: DAVID 12/30/18 1322 RPT#: [id number] DC DATE:12/30/18 STATUS: DIS IN [facility] [address] [place] [address] END OF REPORT
--- NOTE | 2018-12-30 13:51 | MORECARE ---
CASE MANAGEMENT DISCHARGE SUMMARY PATIENT: CHRISTEL AYON UNIT: [id number] ADM DATE: 12/15/18 AGE: 58 : 64 SEX: F ROOM/BED: D[facility] AUTHOR: DARLINE,DOC PHYSICIAN: REFERRING PHYSICIAN: DENNIS VARELA MD DATE OF SERVICE: 12/30/18 Discharge Plan Patient Name: HCRISTEL AYON Facility: [facility]:[place] : 1960 Planned Disposition: Home Anticipated Discharge Date: Discharge Date: 12/30/2018 Expected LOS: Initial Reviewer: [email or web address] Initial Review Date: 12/15/2018 Generated: 12/30/18 2:51 pm Comments DCP- Discharge Planning Updated by [email or web address]: Guerline Nicole on 12/30/18 12:[address] Late Entry 12/30/18 @ 0930 Patient Name: CHRISTEL AYON Encounter No: [id number] : 1960 Primary Insurance: [facility] MEDICARE SOLUTIONS Anticipated DC Date: Planned Disposition: Home External Planned Provider: : Portable 02 has been delivered to room from [facility] [place]. Patient denies any discharge needs. DCP follow-up note: Patient and family in agreement with discharge plan. No changes to plan. Case management will follow and assist as needed. Guerline Nicole DCP- Discharge Planning Updated by [email or web address]: Guerline Nicole on 12/29/18 10:[address] CM spoke with patient she states she has nebulizer at home. Walk test completed. REHAN for DME completed and signed. CM notified [facility] [place] [phone] and faxed records [phone]. IMM explained and signed 12/29/18 @ 11:50. CM will continue to follow and assist as needed with discharge planning / needs. DCP- Discharge Planning Updated by [email or web address]: Aleena Fry on 12/28/18 6:[address] ORDER RECEIVED: in am check o2 requirements and arrange nebulzier with duoneb for discharge on Saturday. CM spoke to Kimmie with Respiratory Therapy regarding the order. She stated she would pass this off in report in the AM for the walk test to be completed. Aleena Fry RN, [facility] DCP- Discharge Planning Updated by [email or web address]: Guerline Nicole on 12/16/18 4:[address] Patient Name: CHRISTEL AYON Admission Status: Elective Accout number: [id number] Admission Date: 12-15-2018 : 1960 Admission Diagnosis: Attending: DENNIS VARELA Current LOS: 1 Anticipated DC Date: Planned Disposition: Home Primary Insurance: [facility] MEDICARE SOLUTIONS Discharge Planning Comments: CM met with patient at bedside after obtaining verbal consent. Patient states she plans on returning home after discharge with her . Patient states she will have family transport her home via private vehicle. Patient states she may need home health upon discharge. Patient my require walk test if 02 still needed upon discharge. CM will continue to follow and assist as needed for discharge planning / needs. Hitch Technician: Guerline Nicole DCPIA - Discharge Planning Initial Assessment Updated by [email or web address]: Guerline Nicole on 12/16/18 5:52 pm * Is the patient Alert and Oriented? Yes * How many steps to enter\exit or inside your home? * PCP JUANITA - [facility] * Pharmacy [facility] * Preadmission Environment Home with Family * ADLs Independent * Other Equipment WALKER, CANE, WHEELCHAIR, HOSPITAL BED, NEBULIZER ALL AVAILABLE IF NEEDED * List name and contact numbers for known caregivers / representatives who currently or will assist patient after discharge: RUTH ANN AYON - SPOUSE- [phone] * Verbal permission to speak to the caregivers and representatives has been obtained from the patient. Yes * Community resources currently utilized None * Additional services required to return to the preadmission environment? No * Can the patient safely return to the preadmission environment? Yes * Has this patient been hospitalized within the prior 30 days at any hospital? No Coverage Notice Reviewer: [email or web address] - Guerline Nicole Notice Issued Date-Time: 12/29/2018 11:50 Notice Type: IM Discharge Notice Notice Delivered To: Patient Relationship to Patient: Self Solids Control Technician Name: Delivery Method: HAND - Hand Delivered Jo Days: Prior Verbal Notification: Recipient Understood Notice: Yes Recipient Signature: Yes Med Rec Note Co-signed by Attending: Coverage Notice Comment: Last DP export: 12/30/18 12:22 pm Patient Name: CHRISTEL AYON Page 62356 at 1351 All edits/amendments must be made on the electronic document DICTATION DATE: 12/30/18 1351 SURVEY OPERATIONS DIRECTOR: DAVID 12/30/18 1351 RPT#: [id number] DC DATE:12/30/18 STATUS: DIS IN [facility] [address] [place] [address] END OF REPORT
[2019-01-16 12:19] LABS: FUNGUS MYCOLOGY CULTURE Final report (())
[2019-01-19 08:09] LABS: FUNGUS MYCOLOGY CULTURE Final report (())
== END 2018-12-30 11:30 | disposition home or self-care (01) | DRG 163 ==
LOC: D.CVICU 07:30 → D.SDCHOLD 07:30 → D.CVICU 12:44
PROVIDERS: Internal Medicine Cardiovascular Disease; Internal Medicine Pulmonary Disease; ADMIT Thoracic Surgery (Cardiothoracic Vascular Surgery)
PROC: 07T70ZZ Resection of Thorax Lymphatic, Open Approach (ICD-10-PCS; 2018-12-15)
PROC: 0BJ08ZZ Inspection of Tracheobronchial Tree, Via Natural or Artificial Opening Endoscopic (ICD-10-PCS; 2018-12-15)
PROC: 0BTG0ZZ Resection of Left Upper Lung Lobe, Open Approach (ICD-10-PCS; principal; 2018-12-15 11:45)
PROC: 0BC78ZZ Extirpation of Matter from Left Main Bronchus, Via Natural or Artificial Opening Endoscopic (ICD-10-PCS; 2018-12-19)
PROC: 0BCB8ZZ Extirpation of Matter from Left Lower Lobe Bronchus, Via Natural or Artificial Opening Endoscopic (ICD-10-PCS; 2018-12-22)
PROC: 0BC78ZZ Extirpation of Matter from Left Main Bronchus, Via Natural or Artificial Opening Endoscopic (ICD-10-PCS; 2018-12-22)
PROC: 0BCB8ZZ Extirpation of Matter from Left Lower Lobe Bronchus, Via Natural or Artificial Opening Endoscopic (ICD-10-PCS; 2018-12-23)
PROC: 0BC78ZZ Extirpation of Matter from Left Main Bronchus, Via Natural or Artificial Opening Endoscopic (ICD-10-PCS; 2018-12-23)
PROC: 05HY33Z Insertion of Infusion Device into Upper Vein, Percutaneous Approach (ICD-10-PCS; 2018-12-24)
PROC: 0BCB8ZZ Extirpation of Matter from Left Lower Lobe Bronchus, Via Natural or Artificial Opening Endoscopic (ICD-10-PCS; 2018-12-25)
PROC: 0BC78ZZ Extirpation of Matter from Left Main Bronchus, Via Natural or Artificial Opening Endoscopic (ICD-10-PCS; 2018-12-25)
PROC: 0BCB8ZZ Extirpation of Matter from Left Lower Lobe Bronchus, Via Natural or Artificial Opening Endoscopic (ICD-10-PCS; 2018-12-26)
PROC: 0BC78ZZ Extirpation of Matter from Left Main Bronchus, Via Natural or Artificial Opening Endoscopic (ICD-10-PCS; 2018-12-26)
DX: C34.12 Malignant neoplasm of upper lobe, left bronchus or lung (principal); J18.1 Lobar pneumonia, unspecified organism; J96.01 Acute respiratory failure with hypoxia; J93.9 Pneumothorax, unspecified; J90 Pleural effusion, not elsewhere classified; T17.590A Other foreign object in bronchus causing asphyxiation, initial encounter; J98.11 Atelectasis; C77.1 Secondary and unspecified malignant neoplasm of intrathoracic lymph nodes; D64.9 Anemia, unspecified; D72.829 Elevated white blood cell count, unspecified; I48.0 Paroxysmal atrial fibrillation; J44.9 Chronic obstructive pulmonary disease, unspecified; Y95 Nosocomial condition; I10 Essential (primary) hypertension; E03.9 Hypothyroidism, unspecified; K21.9 Gastro-esophageal reflux disease without esophagitis; M19.90 Unspecified osteoarthritis, unspecified site; F41.9 Anxiety disorder, unspecified; R53.81 Other malaise

== ENCOUNTER → 2019-01-08 11:18 | Outpatient (CLI) | payer MEDICARE, MEDICAID ==
[2018-12-20 14:09] VITALS: BMI 21.3
[~2019-01-08 11:18] MED LIST changes: +ASPIRIN EC81 M1 PO; +COLACE100 MG PO; +K-DUR20 MEQ PO; +MIRALAX17 GM PO; +MUCINEX600 MG PO; +PERCOCET 5-3251 TAB PO
== END | disposition home or self-care (01) ==
LOC: D.RAD 08:15
DX: J90 Pleural effusion, not elsewhere classified (principal)

== ENCOUNTER → 2019-01-21 08:47 | Outpatient (CLI) | payer MEDICARE, MEDICAID ==
[2018-12-20 14:09] VITALS: BMI 21.3
== END | disposition home or self-care (01) ==
LOC: D.RAD 08:30
PROVIDERS: ATTEND Thoracic Surgery (Cardiothoracic Vascular Surgery)
DX: C34.90 Malignant neoplasm of unspecified part of unspecified bronchus or lung (principal)

== ENCOUNTER → 2019-04-13 13:40 | Outpatient (CLI) | payer MEDICARE, MEDICAID ==
[2018-12-20 14:09] VITALS: BMI 21.3
== END | disposition home or self-care (01) ==
LOC: D.RAD 13:40
PROVIDERS: ATTEND Thoracic Surgery (Cardiothoracic Vascular Surgery)
DX: C34.90 Malignant neoplasm of unspecified part of unspecified bronchus or lung (principal)

== ENCOUNTER → 2019-05-11 14:29 | Outpatient (CLI) | payer MEDICARE, MEDICAID ==
[2018-12-20 14:09] VITALS: BMI 21.3
== END | disposition home or self-care (01) ==
LOC: D.RT 05-08 10:00 → D.LAB 05-08 11:00 → D.RT 14:29
PROVIDERS: ATTEND Internal Medicine Pulmonary Disease
DX: J44.9 Chronic obstructive pulmonary disease, unspecified (principal)

== ENCOUNTER → 2019-08-05 09:21 | Outpatient (CLI) | payer MEDICARE, MEDICAID ==
[2018-12-20 14:09] VITALS: BMI 21.3
== END | disposition home or self-care (01) ==
LOC: D.RAD 09:21
PROVIDERS: ATTEND Thoracic Surgery (Cardiothoracic Vascular Surgery)
DX: C80.1 Malignant (primary) neoplasm, unspecified (principal)

== ENCOUNTER → 2019-10-12 08:37 | Outpatient (CLI) | payer MEDICARE, MEDICAID ==
[2018-12-20 14:09] VITALS: BMI 21.3
== END | disposition home or self-care (01) ==
LOC: D.RAD 08:00
PROVIDERS: ATTEND Internal Medicine Gastroenterology
DX: R12 Heartburn (principal); R13.10 Dysphagia, unspecified; R11.2 Nausea with vomiting, unspecified; R63.4 Abnormal weight loss

== ENCOUNTER → 2019-10-28 10:08 | Outpatient (CLI) | payer MEDICARE, MEDICAID ==
[2018-12-20 14:09] VITALS: BMI 21.3
== END | disposition home or self-care (01) ==
LOC: D.RAD 10:08
PROVIDERS: ATTEND Internal Medicine Gastroenterology
DX: K59.04 Chronic idiopathic constipation (principal)

== ENCOUNTER 2019-11-23 13:01 | Day surgery (SDC) | payer MEDICARE, MEDICAID ==
[~2019-11-23] VITALS: Ht 165.1 cm; Wt 54.1 kg
--- NOTE | ~2019-11-23 | OP ---
PATIENT NAME: SARITA AYON MEDICAL RECORD: [id number] :[birth year] LOCATION:[facility] ADMISSION DATE: SURGEON: KAREY ALCARAZ DO DATE OF OPERATION: 11/23/2019 PROCEDURE: EGD with biopsies and balloon dilation. INDICATIONS FOR PROCEDURE: Dysphagia, heartburn, nausea and vomiting, hematemesis. SCOPE: Olympus video gastroscope. MEDICATIONS: Propofol 200 mg IV per anesthesia. ESTIMATED BLOOD LOSS: Minimal. COMPLICATIONS: None. FINDINGS: Informed consent was given. The patient was made comfortable with the above medication. After reaching an adequate level of sedation by slow IV push, the patient was placed on her left side. The endoscope was advanced under direct visualization through the mouth to the second portion of the duodenum with ease. The entire esophagus appeared normal. At the GE junction, there was evidence of LA class A reflux-induced esophagitis and a mild esophageal stricture. CRE dilating balloon was used to dilate the stricture up to 16 mm maximum diameter successfully. The endoscope was advanced beyond the GE junction into the stomach and retroflexed to the cardia and fundus were and fundus. There was a moderate sized hiatal hernia present without associated ulcerations or other abnormalities. There did appear to be some granulation tissue and friability in the cardia of the stomach. Random cold forceps biopsies were taken from this site. Throughout the body of the stomach and antrum of the stomach, there were patchy areas of erythema and granularity as well as friability. Cold forcep biopsies were taken from the antrum to submit for histopathology and to rule out the presence of H. pylori. The endoscope was advanced beyond the pylorus. The duodenum appeared normal to the second portion. The endoscope was then withdrawn from the patient. The patient tolerated the procedure well and there were no immediate complications. IMPRESSION: 1. LA class A reflux-induced esophagitis. 2. Esophageal stricture, status post dilation to 16 mm. 3. Gastritis with biopsies taken from both the antrum and cardia. 4. Moderate size hiatal hernia. PLAN AND RECOMMENDATIONS: 1. Discharge home when recovery parameters are met. 2. Follow up biopsy specimen results. 3. Gastric emptying scan regarding symptoms, which sound like gastroparesis. 4. Follow up in GI clinic in 3-4 weeks to determine if further workup is necessary. If the gastric emptying scan is normal, consider changing antacid medications to see if these help symptoms. TRANSINT:[id number] Voice Confirmation ID: [id number] DOCUMENT ID: [id number] OPERATIVE REPORT [id number] SARITA AYON NATHAN A DO CC: [id number] DICTATION DATE: 11/23/191510 AGRISCIENCE TECHNOLOGY INSTRUCTOR: 11/23/192154 [facility] 11/23/19 [place] [id number] [place] [id number]
[2019-11-23 13:30] LABS: HEMATOCRIT 34.9 % (36.0-48.0); MCH 26.4 pg (26.0-34.0); MCHC 31.5 g/dL (31.0-37.0); MCV 83.7 fL (80.0-100.0); MEAN PLATELET VOLUME 9.7 fL (7.4-10.4); RBC 4.17 10x6/uL (4.00-5.40); RDW 19.2 % (11.5-14.5); WBC 12.7 10x3/uL (4.8-10.8)
[2019-11-23 14:05] VITALS: BP 96/67; Ht 165.1 cm; Wt 54.1 kg
--- NOTE | 2019-11-23 15:52 | NUR ---
DC INSTRUCTIONS GIVEN TO PT. STATES UNDERSTANDING. DC'D IV CATH FULLY INTACT.
--- NOTE | 2019-11-23 15:56 | NUR ---
PT LEFT UNIT VIA WC AT 1556
== END 2019-11-23 15:56 | disposition home or self-care (01) ==
LOC: D.OPS 13:01
PROVIDERS: Anesthesiology; ATTEND Internal Medicine Gastroenterology
DX: R13.10 Dysphagia, unspecified (principal); R12 Heartburn; R11.2 Nausea with vomiting, unspecified; R63.4 Abnormal weight loss

== ENCOUNTER → 2019-12-01 10:54 | Outpatient (CLI) | payer MEDICARE, MEDICAID ==
[2019-11-23 14:05] VITALS: BMI 19.8
== END | disposition home or self-care (01) ==
LOC: D.NM 10:54
PROVIDERS: ATTEND Internal Medicine Gastroenterology
DX: R10.9 Unspecified abdominal pain (principal); R11.2 Nausea with vomiting, unspecified

== ENCOUNTER 2020-01-25 05:59 | Day surgery (SDC) | payer MEDICARE, MEDICAID ==
[~2020-01-25] VITALS: Ht 165.1 cm; Wt 50.9 kg
[2020-01-25 06:55] LABS: HEMATOCRIT 36.5 % (36.0-48.0); HEMOGLOBIN 11.7 g/dL (12-16); MCH 26.1 pg (26.0-34.0); MCHC 32.1 g/dL (31.0-37.0); MCV 81.3 fL (80.0-100.0); MEAN PLATELET VOLUME 10.3 fL (7.4-10.4); RBC 4.49 10x6/uL (4.00-5.40); RDW 18.7 % (11.5-14.5); WBC 12.1 10x3/uL (4.8-10.8)
[2020-01-25 07:23] VITALS: BP 89/55; Ht 165.1 cm; Wt 50.9 kg
--- NOTE | 2020-01-25 09:24 | NUR ---
0903 IV DC'D. CATHETER TIP INTACT. NO BLEEDING AT SITE. BANDAID APPLIED.
--- NOTE | 2020-01-25 11:01 | OP ---
PATIENT NAME: SARITA AYON MEDICAL RECORD: [id number] :[birth year] LOCATION:D.OPS ADMISSION DATE: SURGEON: LAVON LAUREN MD DATE OF OPERATION: 01/25/2020 SURGEON: Lavon Lauren MD PREOPERATIVE DIAGNOSES: Intractable nausea and vomiting, gastroparesis, gastroesophageal reflux disease, hiatal hernia, essential hypertension, and coronary artery disease. POSTOPERATIVE DIAGNOSES: Intractable nausea and vomiting, gastroparesis, gastroesophageal reflux disease, hiatal hernia, essential hypertension, and coronary artery disease. PROCEDURE PERFORMED: EGD with Botox injection. ANESTHESIA: Total intravenous anesthesia. COMPLICATIONS: None. SPECIMENS: None. OPERATIVE COURSE: After consent was obtained, the patient was taken to the endoscopy suite. A timeout was taken to confirm the correct patient and procedure. A bite block was placed. Hurricaine [place] was administered. The patient was placed in left lateral decubitus position. Total intravenous anesthesia was given. The scope was passed through the bite block and into the posterior pharynx. It was passed posterior to the epiglottis under endoscopic vision under direct visualization, it was copiously advanced through the esophagus. We encountered a moderate to large hiatal hernia. The scope was passed through the GE junction into the stomach. The stomach was insufflated and retroflexed. Again, evaluating the size of the hernia, considerable portion of the upper stomach was then herniated through the diaphragm. Scope was then advanced. The remaining portion of stomach and the pylorus was identified. The scope was advanced to the pylorus. The duodenum appeared within normal limits. Cold biopsies were taken. The scope was retracted through the pylorus. Antral biopsies were obtained. A 4 quadrant Botox injection was then performed in the pylorus using 100 units of Botox diluted in 10 cc of saline, 2.5 cc were injected in 4 quadrant surrounding the pylorus. At this time, the stomach was desufflated and the scope was slowly withdrawn to the esophagus. No esophageal abnormalities were identified. TRANSINT:[id number] Voice Confirmation ID: [id number] DOCUMENT ID: [id number] LAVON LAUREN MD at 1101 CC: [id number] DICTATION DATE: 01/25/20 08 LOOP MACHINE OPERATOR: 01/25/20 1027 [facility] [address] [place] [address]
== END 2020-01-25 09:40 | disposition home or self-care (01) ==
LOC: D.OPS 05:59
PROVIDERS: Anesthesiology; ATTEND Surgery
DX: R11.2 Nausea with vomiting, unspecified (principal); K31.84 Gastroparesis; K44.9 Diaphragmatic hernia without obstruction or gangrene; I10 Essential (primary) hypertension; I25.10 Atherosclerotic heart disease of native coronary artery without angina pectoris; K21.0 Gastro-esophageal reflux disease with esophagitis

== ENCOUNTER 2020-05-04 19:56 | Inpatient (IN) | payer MEDICARE, MEDICAID ==
[~2020-05-04] VITALS: Ht 165.1 cm; Wt 53.6 kg
[2020-05-04] MEDS ORDERED: DURAGESIC1 EAC5 TOPICAL (20:25)
[2020-05-04] MEDS ORDERED: ELIQUIS5 MG PO (20:26)
[2020-05-04 20:41] LABS: BASOPHILS 0.2 % (0-2); EOSINOPHILS 0.6 % (0-7); HEMATOCRIT 37.3 % (36.0-48.0); HEMOGLOBIN 11.7 g/dL (12-16); IMMATURE GRANULOCYTES 0.3 % (0-5); LYMPHOCYTES 18.8 % (15-50); MCH 29.8 pg (26.0-34.0); MCHC 31.4 g/dL (31.0-37.0); MCV 94.9 fL (80.0-100.0); MONOCYTES 8.9 % (2-11); NEUTROPHILS 71.2 % (40-80); RBC 3.93 10x6/uL (4.00-5.40); RDW 18.5 % (11.5-14.5); WBC 10.2 10x3/uL (4.8-10.8)
[2020-05-04 20:52] LABS: APTT 27.8 SECONDS (22.8-39.4); INR 1.04 (0.85-1.17); PROTIME 13.5 SECONDS (11.6-15.0)
[2020-05-04 20:54] LABS: CALC OSMOLALITY 276 mosm/kg (275-300); CALCIUM 8.8 mg/dL (8.5-10.1); CARBON DIOXIDE 27.5 mmol/L (21.0-32.0); CHLORIDE - SERUM 104 mmol/L (98-107); CREATININE - SERUM 0.7 mg/dL (0.6-1.3); GLUCOSE 104 mg/dL (74-106); POTASSIUM - SERUM 3.2 mmol/L (3.5-5.1); SODIUM 138 mmol/L (136-145); UREA NITROGEN 14 mg/dL (7-18); eGFR NON AFRICAN AMERICAN > 90 mL/min (90-120)
[2020-05-04 21:01] LABS: PLATELET COUNT 113 10x3/uL (130-400)
[2020-05-04 21:15] LABS: ALBUMIN 3.3 g/dL (3.4-5.0); ALKALINE PHOSPHATASE 116 U/L (30-120); ALT (SGPT) 18 U/L (10-68); BILIRUBIN - TOTAL 0.29 mg/dL (0.2-1.3); CKMB 0.9 U/L (0.0-3.6); CREATINE KINASE 33 UL (21-215); PRO BNP 462 pg/mL (0-125); PROTEIN - SERUM 7.6 g/dL (6.4-8.2)
[2020-05-04 23:51] VITALS: BP 112/70
[2020-05-05 04:27] VITALS: BMI 17.8
[2020-05-05 04:51] VITALS: BP 115/63
[2020-05-05 06:50] LABS: CALC OSMOLALITY 277 mosm/kg (275-300); CALCIUM 9.2 mg/dL (8.5-10.1); CARBON DIOXIDE 28.8 mmol/L (21.0-32.0); CHLORIDE - SERUM 103 mmol/L (98-107); GLUCOSE 137 mg/dL (74-106); SODIUM 137 mmol/L (136-145); UREA NITROGEN 17 mg/dL (7-18)
[2020-05-05 06:57] LABS: CREATININE - SERUM 0.5 mg/dL (0.6-1.3); POTASSIUM - SERUM 4.1 mmol/L (3.5-5.1); eGFR NON AFRICAN AMERICAN > 90 mL/min (90-120)
[2020-05-05 07:24] LABS: HEMATOCRIT 34.6 % (36.0-48.0); HEMOGLOBIN 11.2 g/dL (12-16); LYMPHOCYTES 13.6 % (15-50); MCH 30.3 pg (26.0-34.0); MCHC 32.4 g/dL (31.0-37.0); MCV 93.5 fL (80.0-100.0); MEAN PLATELET VOLUME 10.3 fL (7.4-10.4); NEUTROPHILS 84.7 % (40-80); PLATELET COUNT 110 10x3/uL (130-400); RDW 18.2 % (11.5-14.5)
[2020-05-05 07:26] LABS: WBC 6.8 10x3/uL (4.8-10.8)
[2020-05-05 08:32] VITALS: BP 132/82
[2020-05-05 10:41] VITALS: BMI 17.7
[2020-05-05 13:17] VITALS: Ht 165.1 cm; Wt 53.6 kg
[2020-05-05 16:46] VITALS: BP 128/86
[2020-05-05 20:00] VITALS: BP 138/89
--- NOTE | 2020-05-05 21:17 | NUR ---
PT IN BED, AAO X 3, RESP EVEN AND UNLABORED. NO DISTRESS NOTED, CL IN REACH, SR UP X 2, NO WANTS OR NEEDS NOTED AT THIS TIME.
[2020-05-06] VITALS: BP 104/61
[2020-05-06 04:00] VITALS: BP 113/65
[2020-05-06 04:23] LABS: BASOPHILS 0.2 % (0-2); EOSINOPHILS 0.8 % (0-7); HEMATOCRIT 32.3 % (36.0-48.0); HEMOGLOBIN 9.8 g/dL (12-16); IMMATURE GRANULOCYTES 0.2 % (0-5); LYMPHOCYTES 27.9 % (15-50); MCH 29.3 pg (26.0-34.0); MCHC 30.3 g/dL (31.0-37.0); MEAN PLATELET VOLUME 9.7 fL (7.4-10.4); MONOCYTES 12.9 % (2-11); PLATELET COUNT 123 10x3/uL (130-400); RBC 3.35 10x6/uL (4.00-5.40); RDW 18.3 % (11.5-14.5)
[2020-05-06 04:42] LABS: MCV 96.4 fL (80.0-100.0); WBC 8.7 10x3/uL (4.8-10.8)
[2020-05-06 04:59] LABS: ALBUMIN 2.9 g/dL (3.4-5.0); ALKALINE PHOSPHATASE 92 U/L (30-120); ALT (SGPT) 15 U/L (10-68); BILIRUBIN - TOTAL 0.22 mg/dL (0.2-1.3); CALC OSMOLALITY 274 mosm/kg (275-300); CALCIUM 8.4 mg/dL (8.5-10.1); CARBON DIOXIDE 27.9 mmol/L (21.0-32.0); CHLORIDE - SERUM 104 mmol/L (98-107); CREATININE - SERUM 0.5 mg/dL (0.6-1.3); GLUCOSE 115 mg/dL (74-106); LIPASE 60 U/L (73-393); POTASSIUM - SERUM 3.6 mmol/L (3.5-5.1); PRO BNP 558 pg/mL (0-125); PROTEIN - SERUM 6.6 g/dL (6.4-8.2); SODIUM 137 mmol/L (136-145); TROPONIN-I 0.028 ng/mL (0.000-0.060); UREA NITROGEN 13 mg/dL (7-18); eGFR NON AFRICAN AMERICAN > 90 mL/min (90-120)
--- NOTE | 2020-05-06 10:34 | NUR ---
Rehab Prescreening Consult recieved and the chart has been reviewed. She is a good ARU candidate, but is [facility] managed Medicare and will require a preauth. She has had an OT eval and has a PT eval pending. Once completed information will be submitted to [facility] for their review. Will discuss in the IDT meeting this AM. Carlota Tran RN Clinical Liaison, Rehab
--- NOTE | 2020-05-06 12:58 | MORECARE ---
CASE MANAGEMENT DISCHARGE SUMMARY PATIENT: SARITA AYON UNIT: [id number] ADM DATE: 05/04/20 AGE: 59 : 64 SEX: F ROOM/BED: D.2137 AUTHOR: LUKE GREGORIO PHYSICIAN: REFERRING PHYSICIAN: KAREN JIMÉNEZ MD DATE OF SERVICE: 05/06/20 Discharge Plan Patient Name: SARITA AYON [facility] [facility] 1960 Planned Disposition: Inpatient Rehab Anticipated Discharge Date: Discharge Date: Expected LOS: Initial Reviewer: [email or web address] Initial Review Date: 05/04/2020 Generated: 05/06/20 1:57 pm DCPIA - Discharge Planning Initial Assessment Updated by [email or web address]: Kerrie Jiang on 05/06/20 12:56 pm * Is the patient Alert and Oriented? Yes * How many steps to enter\exit or inside your home? 0/0 * PCP JUANITA * Pharmacy [facility] * Preadmission Environment Home Alone * ADLs Independent * Equipment Bedside Commode Grab Bars Oxygen Rolling Walker Shower Chair * List name and contact numbers for known caregivers / representatives who currently or will assist patient after discharge: NAKUL (DTR [phone] PHILLY (SPOUSE) [phone] LIVES IN [place] * Verbal permission to speak to the caregivers and representatives has been obtained from the patient. Yes * Community resources currently utilized None * Additional services required to return to the preadmission environment? Yes * Can the patient safely return to the preadmission environment? No * Has this patient been hospitalized within the prior 30 days at any hospital? Yes Patient Name: SARITA AYON Page [phone] at 1258 All edits/amendments must be made on the electronic document DICTATION DATE: 05/06/20 1257 LEGAL BILLING COORDINATOR: DAVID 05/06/20 1257 RPT#: [id number] DC DATE: STATUS: ADM IN [facility] [address] [place] [address] END OF REPORT
[2020-05-06 13:04] VITALS: BP 122/70
--- NOTE | 2020-05-06 13:17 | MORECARE ---
CASE MANAGEMENT DISCHARGE SUMMARY PATIENT: SARITA AYON UNIT: [id number] ADM DATE: 05/04/20 AGE: 59 : 64 SEX: F ROOM/BED: D.4991 AUTHOR: LUKE GREGORIO PHYSICIAN: REFERRING PHYSICIAN: KAREN JIMÉNEZ MD DATE OF SERVICE: 05/06/20 Discharge Plan Patient Name: SARITA AYON [facility]:[place] : 1960 Planned Disposition: Inpatient Rehab Anticipated Discharge Date: Discharge Date: Expected LOS: Initial Reviewer: [email or web address] Initial Review Date: 05/04/2020 Generated: 05/06/20 2:16 pm Comments DCP- Discharge Planning Updated by [email or web address]: Kerrie Jiang on 05/06/20 12:[address] Patient Name: SARITA AYON Admission Status: Elective Accout number: [id number] Admission Date: 05-04-2020 : 1960 Admission Diagnosis:MYOCARDIAL INFARCTION TYPE 2 Attending: KAREN JIMÉNEZ Current LOS: 2 Anticipated DC Date: Planned Disposition: Inpatient Rehab Primary Insurance: [facility] MEDICARE SOLUTIONS Discharge Planning Comments: CM met with patient to complete initial dc planning assessment. CM educated patient on the CM role and verbal consent given by patient to complete assessment. CM verified patient's address, phone number, and emergency contact phone numbers. Patient lives at home alone, and is typically independent of her needs but has become too weak. Pt states her lives in [place], but is here to help her out some. States he stays at a friends house. Her daughter is able to cook meals when she is available. Provided pt with Area on Aging packet so she may have a homemaker aid when discharged. At discharge patient plans to return home and feels this is a safe discharge. CM anticipates the need for IP rehab, and home health. REHAN signed for [facility] ip rebab, and [facility]. Pt wears 2-3 02 at home, and has nebulizers pt plans to resume care with [facility]. CM faxed referral to [facility] , and sent update to Chandana at [facility]. Transportation provider at discharge will be [facility] . CM will continue to follow and will assist as needed with dc plans/needs. Boil Off Worker: Kerrie Jiang DCPIA - Discharge Planning Initial Assessment Updated by [email or web address]: Kerrie Jiang on 05/06/20 12:56 pm * Is the patient Alert and Oriented? Yes * How many steps to enter\exit or inside your home? 0/0 * PCP JUANITA * Pharmacy [facility] * Preadmission Environment Home Alone * ADLs Independent * Equipment Bedside Commode Grab Bars Oxygen Rolling Walker Shower Chair * List name and contact numbers for known caregivers / representatives who currently or will assist patient after discharge: NAKUL (DTR [phone] PHILLY (SPOUSE) [phone] LIVES IN [place] * Verbal permission to speak to the caregivers and representatives has been obtained from the patient. Yes * Community resources currently utilized None * Additional services required to return to the preadmission environment? Yes * Can the patient safely return to the preadmission environment? No * Has this patient been hospitalized within the prior 30 days at any hospital? Yes External Providers External Provider: [facility] Next Contact Date: Service Request Date: Service Type: Resolution: Reviewer: Comments: Last DP export: 05/06/20 11:58 a Patient Name: SARITA AYON Page 28635 at 1317 All edits/amendments must be made on the electronic document DICTATION DATE: 05/06/201316 PLISSE MACHINE OPERATOR HELPER: DAVID 05/06/20 1317 RPT#: [id number] DC DATE: STATUS: ADM IN [facility] [address] [place] [address] END OF REPORT
--- NOTE | 2020-05-06 13:24 | MORECARE ---
CASE MANAGEMENT DISCHARGE SUMMARY PATIENT: SARITA AYON UNIT: [id number] ADM DATE: 05/04/20 AGE: 59 : 64 SEX: F ROOM/BED: D.5885 AUTHOR: LUKE GREGORIO PHYSICIAN: REFERRING PHYSICIAN: KAREN JIMÉNEZ MD DATE OF SERVICE: 05/06/20 Discharge Plan Patient Name: SARITA AYON Facility: [facility]:[place] : 1960 Planned Disposition: Inpatient Rehab Anticipated Discharge Date: Discharge Date: Expected LOS: Initial Reviewer: [email or web address] Initial Review Date: 05/04/2020 Generated: 05/06/20 2:24 pm Comments DCP- Discharge Planning Updated by [id number]: Kerrie Jiang on 05/06/20 12:[address] Patient Name: SARITA AYON Admission Status: Elective Accout number: [id number] Admission Date: 05-04-2020 : 1960 Admission Diagnosis:MYOCARDIAL INFARCTION TYPE 2 Attending: KAREN JIMÉNEZ Current LOS: 2 Anticipated DC Date: Planned Disposition: Inpatient Rehab Primary Insurance: [facility] MEDICARE SOLUTIONS Discharge Planning Comments: CM met with patient to complete initial dc planning assessment. CM educated patient on the CM role and verbal consent given by patient to complete assessment. CM verified patient's address, phone number, and emergency contact phone numbers. Patient lives at home alone, and is typically independent of her needs but has become too weak. Pt states her lives in [place], but is here to help her out some. States he stays at a friends house. Her daughter is able to cook meals when she is available. Provided pt with Area on Aging packet so she may have a homemaker aid when discharged. At discharge patient plans to return home and feels this is a safe discharge. CM anticipates the need for IP rehab, and home health. REHAN signed for [facility] ip rebab, and [facility]. Pt wears 2-3 02 at home, and has nebulizers pt plans to resume care with [facility]. CM faxed referral to [facility] , and sent update to Chandana at [facility]. Transportation provider at discharge will be [facility] . CM will continue to follow and will assist as needed with dc plans/needs. Advisor Advocate Angel Co Founder: Kerrie Jiang DCPIA - Discharge Planning Initial Assessment Updated by [email or web address]: Kerrie Jiang on 05/06/20 12:56 pm * Is the patient Alert and Oriented? Yes * How many steps to enter\exit or inside your home? 0/0 * PCP JUANITA * Pharmacy [facility] * Preadmission Environment Home Alone * ADLs Independent * Equipment Bedside Commode Grab Bars Oxygen Rolling Walker Shower Chair * List name and contact numbers for known caregivers / representatives who currently or will assist patient after discharge: NAKUL (DTR [phone] PHILLY (SPOUSE) [phone] LIVES IN [place] * Verbal permission to speak to the caregivers and representatives has been obtained from the patient. Yes * Community resources currently utilized None * Additional services required to return to the preadmission environment? Yes * Can the patient safely return to the preadmission environment? No * Has this patient been hospitalized within the prior 30 days at any hospital? Yes External Providers [facility] Next Contact Date: Service Request Date: Service Type: Resolution: Reviewer: Comments: Last DP export: 05/06/20 12:17 p Patient Name: SARITA AYON Page [phone] at 1324 All edits/amendments must be made on the electronic document DICTATION DATE: 05/06/20 1324 NEW ACCOUNTS CLERK: DAVID 05/06/20 1324 RPT#: [id number] DC DATE: STATUS: ADM IN [facility] [address] [place] [address] END OF REPORT
[2020-05-06 17:40] VITALS: BP 114/74
[2020-05-06 18:15] VITALS: BP 119/67
--- NOTE | 2020-05-06 19:30 | NUR ---
PT IN BED, AAO X 3, RESP EVEN AND UNLABORED. NO DISTRESS NOTED,CL IN REACH, SR UP X 2.
[2020-05-06 20:40] VITALS: BP 113/65
[2020-05-07 01:13] VITALS: BP 106/51
--- NOTE | 2020-05-07 04:00 | NUR ---
I have reviewed this patient and I concur with the Shift Assessment completed by the Licensed Practical Nurse today this shift.
[2020-05-07 04:42] VITALS: BP 100/49
[2020-05-07 05:50] LABS: BASOPHILS 0 % (0-2); EOSINOPHILS 0 % (0-7); HEMATOCRIT 30.5 % (36.0-48.0); HEMOGLOBIN 9.3 g/dL (12-16); IMMATURE GRANULOCYTES 0.2 % (0-5); MCHC 30.5 g/dL (31.0-37.0); MEAN PLATELET VOLUME 10.1 fL (7.4-10.4); MONOCYTES 2.1 % (2-11); NEUTROPHILS 83.7 % (40-80); PLATELET COUNT 134 10x3/uL (130-400); RBC 3.21 10x6/uL (4.00-5.40); RDW 17.6 % (11.5-14.5)
[2020-05-07 05:57] LABS: WBC 4.7 10x3/uL (4.8-10.8)
[2020-05-07 06:16] LABS: CARBON DIOXIDE 28.7 mmol/L (21.0-32.0); CHLORIDE - SERUM 103 mmol/L (98-107); CREATININE - SERUM 0.5 mg/dL (0.6-1.3); GLUCOSE 138 mg/dL (74-106); SODIUM 135 mmol/L (136-145); eGFR NON AFRICAN AMERICAN > 90 mL/min (90-120)
[2020-05-07 06:17] LABS: CALC OSMOLALITY 273 mosm/kg (275-300); UREA NITROGEN 17 mg/dL (7-18)
--- NOTE | 2020-05-07 07:52 | NUR ---
PT RECEIVED SLEEPING IN BED. NO COMPLAINTS.
[2020-05-07 12:00] VITALS: BP 113/62
[2020-05-07 12:52] VITALS: BP 117/66
[2020-05-07 16:00] VITALS: BP 124/64
--- NOTE | 2020-05-07 18:21 | NUR ---
OT NOTE: (DOS 05/06/2020) PT COMPLETED BED MOB WITH SBA. PT COMPLETED SIT TO STAND WITH SBA/CGA. PT COMPLETED LB HYGIENE WITH SBA. PT COMPLETED GABRIELLE/DOFF SOCKS AT EOB WITH SBA. [phone] THANK YOU,VINICIO FLAHERTY
--- NOTE | 2020-05-07 19:02 | NUR ---
FENTANYL PATCH CHANGED TODAY. OLD ONE REMOVED AND WASTED, WITNESSED.
--- NOTE | 2020-05-07 19:30 | NUR ---
PT UP IN CHAIR, RESP EVEN AND UNLABORED. NO DISTRESS NOTED, CL IN REACH, SR UP X 2.
[2020-05-07 20:00] VITALS: BP 118/64
[2020-05-08 04:00] VITALS: BP 121/61
--- NOTE | 2020-05-08 04:00 | NUR ---
I have reviewed this patient and I concur with the Shift Assessment completed by the Licensed Practical Nurse today this shift.
--- NOTE | 2020-05-08 07:10 | NUR ---
REPORT RECEIVED FROM PBX WIRE CHIEF AND PATIENT CARE ASSUMED. PATIENT SITTING UP IN BED AWAKE, ALERT AND ORIENTED X 4. PATIENT IS STABLE AND VSS. PATIENT DENIES ANY NEEDS OR PAIN. WILL CONTINUE WITH PLAN OF CARE. SR UPX 2 BED IN LOW POSITION AND CALL LIGHT IN REACH.
--- NOTE | 2020-05-08 09:31 | EC ---
PATIENT:SARITA AYON DATE OF SERVICE: 05/04/20 SEX: F MEDICAL RECORD: [id number] DATE OF : [birth year] LOCATION:D.M2 D.213 AGE OF PATIENT: 59 ADMISSION DATE: 05/04/20 REFERRING PHYSICIAN: INTERPRETING PHYSICIAN: LIZZY PIERRE MD ECHOCARDIOGRAM REPORT ECHO CHARGES 4 ECHO COMPLETE Date: 05/06/20 CLINICAL DIAGNOSIS: ELEVATED TROP ECHOCARDIOGRAPHIC MEASUREMENTS (adult normal given) AC root (d.<3.7cm) 2.9 cm LV Septum d (<1.2 cm> 0.8 cm Valve Excursion 1.7 cm LV Septum (systole) 1.9 cm Left Atria (s.<4.0cm> 3.6 cm LVPW d(<1.2cm) 0.8 cm RV (d.<2.3cm) 3.4 cm LVPW (sytole) 1.2 cm LV diastole(<5.6CM) 5.4 cm MV E-F(>70mm/sec) cm LV systole 2.5 cm LVOT Diameter 1.8 cm MV exc.(>10mm) cm Est.ejection fraction (50-75%) % DOPPLER: LVIT cm/sec A 132 cm/sec E 117 cm/sec LA cm/sec RVSP 27.8 mmHg LVOT 138 cm/sec AOP1/2T m/s Asc. Ao 140 cm/sec RVOT 75 cm/sec RA cm/sec PA 86 cm/sec AV Gradient Peak 7.9 mmHg AV Mean 4.6 mmHg AV Area 2.2 cm MV Gradient Peak mmHg MV Mean mmHg MV Area cm COMMENTS: Zipper Trimmer Hand: Jacquelyn VALENTE Engineer Station Mainline: 3 Dr. Santillan TAPE# PACS Pericardial Effusion N DATE OF SERVICE: Adequate 2D, color flow imaging, spectral Doppler, and M-Mode. No LVH. LV internal dimension is normal. Wall motion is normal. EF is greater than or equal to 55%. Aortic valve is tricuspid. No evidence of stenosis by Doppler interrogation. Left atrium is normal. Mitral valve shows no prolapse. Nxlk-mj-qzimlyzs MR. Right-sided chambers are grossly normal. Trace TR. TRANSINT:[id number] Voice Confirmation ID: [id number] DOCUMENT ID: [id number] ECHOCARDIOGRAM REPORT [id number] SARITA AYON LIZZY PIERRE MD at 0931 CC: [id number] DICTATION DATE: 05/07/20 0956 SOFTWARE QUALITY ASSURANCE ENGINEER: 05/07/20 1013 ADM IN [place] [id number] [place] [id number]
[2020-05-08 09:39] VITALS: BP 134/83
[2020-05-08 12:11] VITALS: BP 132/72
--- NOTE | 2020-05-08 14:30 | NUR ---
PATIENT COMPLAINS OF BEING SHORT OF BREATH. O2 NC AT 2 L. O2 SAT AT 90% PATIENT STATES THAT SHE WANTS A BREATHING TREATMENT. CALLED HARVEY BOYD . RT HARVEY IN ROOM. WILL CONTINUE TO MONITOR. SR UP X 2 BED IN LOW POSTION AND CALL LIGHT IN REACH.
--- NOTE | 2020-05-08 15:45 | NUR ---
PER V/O DR HAND, ORDERED ABG'S WITH CHEM. RESPIRATORY THERAPY WITH PATIENT.
--- NOTE | 2020-05-08 16:54 | NUR ---
PATIENT SITTING UP IN BS CHIR WATCHING TV IN NO ACUTE DISTRESS. PATIENT DENIES ANY NEEDS OR PAIN. PATIENT IS STABLE AND VSS. WILL CONTINUE TO MONITOR. SR UP X 2 BED IN LOW POSITION AND CALL LIGHT IN REACH.
--- NOTE | 2020-05-08 19:19 | NUR ---
PT ASKED FOR AND I GOT ICECREAM FOR HER PT IS UP IN CHAIR OTHER NEEDS TAKEN CARE OF WELL PT HAS CALL LIGHT IN REACH AND HER BED IS LOW AND LOCKED
[2020-05-08 20:00] VITALS: BP 121/70
[2020-05-08 20:54] VITALS: BP 121/70
--- NOTE | 2020-05-08 23:13 | NUR ---
SHE WAS HAVING PROBLEMS WITH LOOSE NON-PRODUCTIVE COUGHING SO GIVEN UPDRAFT AT HER REQUEST AND GAVE HER A FLUTTER DEVICE TO HELP WITH SPUTUM MOBOLIZATION. INSTRUCTED ON USE, AND SHE WAS ABLE TO DEMONSTRATE BACK TO ME. WILL NEED ORDER FOR FLUTTER PLEASE.
--- NOTE | 2020-05-09 03:14 | NUR ---
I have reviewed this patient and I concur with the Shift Assessment completed by the Licensed Practical Nurse today this shift.
--- NOTE | 2020-05-09 09:10 | MORECARE ---
CASE MANAGEMENT DISCHARGE SUMMARY PATIENT: SARITA AYON UNIT: [id number] ADM DATE: 05/04/20 AGE: 59 : 64 SEX: F ROOM/BED: D.9269 AUTHOR: LUKE GREGORIO PHYSICIAN: REFERRING PHYSICIAN: KAREN JIMÉNEZ MD DATE OF SERVICE: 05/09/20 Discharge Plan Patient Name: SARITA AYON Facility: [facility]:[place] : 1960 Planned Disposition: Inpatient Rehab Anticipated Discharge Date: Discharge Date: Expected LOS: Initial Reviewer: [id number] Initial Review Date: 05/04/2020 Generated: 05/09/20 10:10 am Comments DCP- Discharge Planning Updated by [email or web address]: Kerrie Jiang on 05/06/20 12:[address] Patient Name: SARITA AYON Admission Status: Elective Accout number: [id number] Admission Date: 05-04-2020 : 1960 Admission Diagnosis:MYOCARDIAL INFARCTION TYPE 2 Attending: KAREN JIMÉNEZ Current LOS: 2 Anticipated DC Date: Planned Disposition: Inpatient Rehab Primary Insurance: [facility] MEDICARE SOLUTIONS Discharge Planning Comments: CM met with patient to complete initial dc planning assessment. CM educated patient on the CM role and verbal consent given by patient to complete assessment. CM verified patient's address, phone number, and emergency contact phone numbers. Patient lives at home alone, and is typically independent of her needs but has become too weak. Pt states her lives in [place], but is here to help her out some. States he stays at a friends house. Her daughter is able to cook meals when she is available. Provided pt with Area on Aging packet so she may have a homemaker aid when discharged. At discharge patient plans to return home and feels this is a safe discharge. CM anticipates the need for IP rehab, and home health. REHAN signed for [facility] ip rebab, and [facility]. Pt wears 2-3 02 at home, and has nebulizers pt plans to resume care with [facility]. CM faxed referral to [facility] , and sent update to Chandana at [facility]. Transportation provider at discharge will be [facility] . CM will continue to follow and will assist as needed with dc plans/needs. Canvas Repairer: Kerrie Jiang DCPIA - Discharge Planning Initial Assessment Updated by [email or web address]: Kerrie Jiang on 05/06/20 12:56 pm * Is the patient Alert and Oriented? Yes * How many steps to enter\exit or inside your home? 0/0 * PCP JUANITA * Pharmacy [facility] * Preadmission Environment Home Alone * ADLs Independent * Equipment Bedside Commode Grab Bars Oxygen Rolling Walker Shower Chair * List name and contact numbers for known caregivers / representatives who currently or will assist patient after discharge: NAKUL (DTR [phone] PHILLY (SPOUSE) [phone] LIVES IN [place] * Verbal permission to speak to the caregivers and representatives has been obtained from the patient. Yes * Community resources currently utilized None * Additional services required to return to the preadmission environment? Yes * Can the patient safely return to the preadmission environment? No * Has this patient been hospitalized within the prior 30 days at any hospital? Yes Last DP export: 05/06/20 12:24 p Patient Name: SARITA AYON Page [phone] at 0910 All edits/amendments must be made on the electronic document DICTATION DATE: 05/09/20909 NIGHT CLERK AUDITOR: DAVID 05/09/20909 RPT#: [id number] DC DATE: STATUS: ADM IN [facility] [address] [place] [address] END OF REPORT
--- NOTE | 2020-05-09 11:56 | NUR ---
Rehab Note- Reviewed medical record and PT has noted to be up with nursing. The patient will not qualify for inpatient acute rehab with [facility] at this time. Spoke with Cassandra Jiang CM. Thank you for this referral! Ruby Del Toro RN Clinical Liaison, [facility] Rehab
[2020-05-09] MEDS ORDERED: VIBRAMYCIN 100100 MG PO (13:53)
[2020-05-09] MEDS ORDERED: MEDROL DOSE PACK4 MG PO (13:54)
--- NOTE | 2020-05-09 14:25 | MORECARE ---
CASE MANAGEMENT DISCHARGE SUMMARY PATIENT: SARITA AYON UNIT: [id number] ADM DATE: 05/04/20 AGE: 59 : 64 SEX: F ROOM/BED: D.9676 AUTHOR: LUKE GREGORIO PHYSICIAN: REFERRING PHYSICIAN: KAREN JIMÉNEZ MD DATE OF SERVICE: 05/09/20 Discharge Plan Patient Name: SARITA AYON Facility: [facility]:[place] : 1960 Planned Disposition: Inpatient Rehab Anticipated Discharge Date: Discharge Date: Expected LOS: Initial Reviewer: [email or web address] Initial Review Date: 05/04/2020 Generated: 05/09/20 3:25 pm Comments DCP- Discharge Planning Updated by [email or web address]: Kerrie Jiang on 05/06/20 12:[address] Patient Name: SARITA AYON Admission Status: Elective Accout number: [id number] Admission Date: 05-04-2020 : 1960 Admission Diagnosis:MYOCARDIAL INFARCTION TYPE 2 Attending: KAREN JIMÉNEZ Current LOS: 2 Anticipated DC Date: Planned Disposition: Inpatient Rehab Primary Insurance: [facility] MEDICARE SOLUTIONS Discharge Planning Comments: CM met with patient to complete initial dc planning assessment. CM educated patient on the CM role and verbal consent given by patient to complete assessment. CM verified patient's address, phone number, and emergency contact phone numbers. Patient lives at home alone, and is typically independent of her needs but has become too weak. Pt states her lives in [place], but is here to help her out some. States he stays at a friends house. Her daughter is able to cook meals when she is available. Provided pt with Area on Aging packet so she may have a homemaker aid when discharged. At discharge patient plans to return home and feels this is a safe discharge. CM anticipates the need for IP rehab, and home health. REHAN signed for [facility] ip rebab, and [facility]. Pt wears 2-3 02 at home, and has nebulizers pt plans to resume care with [facility]. CM faxed referral to [facility] , and sent update to Chandana at [facility]. [facility] . CM will continue to follow and will assist as needed with dc plans/needs. Hims Coder: Kerrie Jiang DCPIA - Discharge Planning Initial Assessment Updated by [email or web address]: Kerrie Jiang on 05/06/20 12:56 pm * Is the patient Alert and Oriented? Yes * How many steps to enter\exit or inside your home? 0/0 * PCP JUANITA * Pharmacy [facility] * Preadmission Environment Home Alone * ADLs Independent * Equipment Bedside Commode Grab Bars Oxygen Rolling Walker Shower Chair * List name and contact numbers for known caregivers / representatives who currently or will assist patient after discharge: NAKUL (DTR [phone] PHILLY (SPOUSE) [phone] LIVES IN [place] * Verbal permission to speak to the caregivers and representatives has been obtained from the patient. Yes * Community resources currently utilized None * Additional services required to return to the preadmission environment? Yes * Can the patient safely return to the preadmission environment? No * Has this patient been hospitalized within the prior 30 days at any hospital? Yes External Providers External Provider: [facility] *(provides inpt [facility] Next Contact Date: Service Request Date: Service Type: Resolution: Reviewer: Comments: Last DP export: 05/09/20 8:10 a Patient Name: SARITA AYON Page [phone] at 1425 All edits/amendments must be made on the electronic document DICTATION DATE: 05/09/201424 STILL OPERATOR BATCH OR CONTINUOUS: DAVID 05/09/20 1425 RPT#: [id number] DC DATE: STATUS: ADM IN [facility] [address] [place] [address] END OF REPORT
--- NOTE | 2020-05-09 14:42 | NUR ---
Nutrition Follow-up: Pt reports eating <50% of breakfast this AM. States that she drinks ~6 Ensure/day at home and wants to drink extra Ensure here. Slight nausea without vomiting. +constipation. Noted hospice consulted. Diet: Cardiac Wt: 118# (05/08); 106.9# (05/05) -BM Labs noted: Na 135, Glu 138 Meds noted: Protonix, Solumedrol, Pepcid, Carafate, Milk of Magnesia -+Ensure with meals. -Monitor wt; noted daily wts ordered. -RD following.
--- NOTE | 2020-05-09 14:46 | NUR ---
I have reviewed this patient and I concur with the Shift Assessment completed by the Licensed Practical Nurse today this shift.
--- NOTE | 2020-05-09 16:41 | NUR ---
TELEMTRY DC'D AND RETURNED TO MACHINE SHOP LEAD MAN. LEFT AC 20G IV DC'D WITH CATH INTACT. DISCHARGE INSTRUCTIONS GIVEN TO PT. CHART COPY SIGNED. PT STATES SHE NEEDS MEDROL DOSE BACK AND DOXYCLINE CALLED INTO [facility] ON [address]. I VERBALIZED UNDERSTANDING.
--- NOTE | 2020-05-09 16:46 | NUR ---
PRESCRIPTIONS CALLED INTO [facility]. CALLED [facility] STATED TO THEM TO NOT FILL SCRIPTS AND THEY STATED THEY WILL PUT THEM BACK.
--- NOTE | 2020-05-09 17:33 | NUR ---
PT TAKEN OUT WITH ALL BELONGINGS VIA WC.
--- NOTE | 2020-05-09 19:06 | MORECARE ---
CASE MANAGEMENT DISCHARGE SUMMARY PATIENT: SARITA AYON UNIT: [id number] ADM DATE: 05/04/20 AGE: 59 : 64 SEX: F ROOM/BED: D.3189 AUTHOR: LUKE GREGORIO PHYSICIAN: REFERRING PHYSICIAN: KAREN JIMÉNEZ MD DATE OF SERVICE: 05/09/20 Discharge Plan Patient Name: SARITA AYON Facility: [facility]:[place] : 1960 Planned Disposition: Inpatient Rehab Anticipated Discharge Date: Discharge Date: 05/09/2020 Expected LOS: Initial Reviewer: [email or web address] Initial Review Date: 05/04/2020 Generated: 05/09/20 8:05 pm Comments DCP- Discharge Planning Updated by [email or web address]: Kerrie Jiang on 05/09/20 6:[address] CM met with pt to discuss dc plan. Verbalized she was not a candidate for IP rehab. Provided alternative rehab facilities such a senior care. Patient verbalized she did not want to go to a nursing facility, and would rather go home. States she would like to have [facility] come see her today. Called [facility] for referral, and faxed clinicals. Fritz Jones came to evaluate patient and admitted to home hospice. Pt called her family for transport home. Provided patient emotional support. Sales Consultant Residential Manager: Kerrie Jiang MSN,RN,CM DCP- Discharge Planning Updated by [email or web address]: Kerrie Jiang on 05/06/20 12:[address] Patient Name: SARITA AYON Admission Status: Elective Accout number: [id number] Admission Date: 05-04-2020 : 1960 Admission Diagnosis:MYOCARDIAL INFARCTION TYPE 2 Attending: KAREN JIMÉNEZ Current LOS: 2 Anticipated DC Date: Planned Disposition: Inpatient Rehab Primary Insurance: [facility] MEDICARE [employer] Discharge Planning Comments: CM met with patient to complete initial dc planning assessment. CM educated patient on the CM role and verbal consent given by patient to complete assessment. CM verified patient's address, phone number, and emergency contact phone numbers. Patient lives at home alone, and is typically independent of her needs but has become too weak. Pt states her lives in [place], but is here to help her out some. States he stays at a friends house. Her daughter is able to cook meals when she is available. Provided pt with [facility] A[facility] packet so she may have a homemaker aid when discharged. At discharge patient plans to return home and feels this is a safe discharge. CM anticipates the need for IP rehab, and home health. REHAN signed for [facility] ip rebab, and [facility]. Pt wears 2-3 02 at home, and has nebulizers pt plans to resume care with [facility]. CM faxed referral to Mark , and sent update to Chandana at [facility]. Transportation provider at discharge will be Nakul . CM will continue to follow and will assist as needed with dc plans/needs. Sales Consultant Residential Manager: Kerrie Jiang DCPIA - Discharge Planning Initial Assessment Updated by [email or web address]: Kerrie Jiang on 05/06/20 12:56 pm * Is the patient Alert and Oriented? Yes * How many steps to enter\exit or inside your home? 0/0 * PCP JUANITA * Pharmacy [facility] * Preadmission Environment Home Alone * ADLs Independent * Equipment Bedside Commode Grab Bars Oxygen Rolling Walker Shower Chair * List name and contact numbers for known caregivers / representatives who currently or will assist patient after discharge: NAKUL (DTR [phone] PHILLY (SPOUSE) [phone] LIVES IN [place] * Verbal permission to speak to the caregivers and representatives has been obtained from the patient. Yes * Community resources currently utilized None * Additional services required to return to the preadmission environment? Yes * Can the patient safely return to the preadmission environment? No * Has this patient been hospitalized within the prior 30 days at any hospital? Yes Last DP export: 05/09/20 1:25 p Patient Name: SARITA AYON Page [id number] at 1906 All edits/amendments must be made on the electronic document DICTATION DATE: 05/09/201904 JET AIRCRAFT SERVICER: DAVID 05/09/201904 RPT#: [id number] DC DATE:05/09/20 STATUS: DIS IN [facility] [address] [place] [address] END OF REPORT
--- NOTE | 2020-05-09 21:51 | NUR ---
OT NOTE: PT COMPLETED SUPINET TO SIT WITH SPV. PT COMPLETED BED TO TOILET ADL MOB WITH CGA/SBA. PT COMPLETED HYGIENE TASKS WITH SPV. PT COMPLETED UE AROM AX WITH FUNCTIONAL TASKS. [phone] THANK YOU,VINICIO FLAHERTY
== END 2020-05-09 17:34 | disposition home health service (06) | DRG 280 ==
LOC: D.ER 19:56 → D.M2 22:03 → D.MS 22:03 → D.M2 23:20
PROVIDERS: Family Medicine; ADMIT Family Medicine; ATTEND Family Medicine
DX: I42.7 Cardiomyopathy due to drug and external agent (principal); I21.A1 Myocardial infarction type 2; I26.99 Other pulmonary embolism without acute cor pulmonale; J96.21 Acute and chronic respiratory failure with hypoxia; J98.11 Atelectasis; T45.1X5A Adverse effect of antineoplastic and immunosuppressive drugs, initial encounter; I10 Essential (primary) hypertension; J43.9 Emphysema, unspecified; I48.0 Paroxysmal atrial fibrillation; E87.6 Hypokalemia